=== PATIENT | female | born 1950 | race Caucasian/White ===

== ENCOUNTER → 2017-07-14 | Outpatient (CLI) | payer OTHER ==
[~2017-07-14] MED LIST: ASPI81TA28 PO; ATEN50TA8 PO; CALC500C70 PO; CRAN1CAP15; MULT-506 PO; OMEG1CAP81; PRLSR20 PO; ZCR20
== END | disposition home or self-care (01) ==
LOC: C.PAPS 10:49
PROVIDERS: ATTEND Obstetrics & Gynecology
DX: Z12.4 Encounter for screening for malignant neoplasm of cervix (principal)

== ENCOUNTER 2017-12-20 04:54 | Emergency (ER) | payer OTHER ==
[~2017-12-20] VITALS: Ht 154.9 cm; Wt 96.5 kg
[~2017-12-20 04:54] MED LIST changes: -CALC500C70 PO; -CRAN1CAP15; +CRAN1TAB9 PO; -OMEG1CAP81; +PHEN-876 PO; -ZCR20; +ZCR20 PO
[2017-12-20 04:57] VITALS: TEMP 36.7; Ht 154.9 cm; Wt 96.5 kg
[2017-12-20] MEDS ORDERED: PHENAZOPYRIDINE HCL 200 MG TAB PO STA (05:13)
--- NOTE | 2017-12-20 05:20 | EMERGENCY ROOM VISIT NOTE ---
History Report prepared by Tata: Yesenia Tariq Under the Supervision of: Dr. Eben Thakur M.D. First contact with patient: 05:02 Chief Complaint: URINARY SYMPTOMS Stated Complaint: UTI History of Present Illness The patient is a 67 year old female who presents to the Emergency Room with complaints of persistent frequent urination that started last night. The patient rates her discomfort a 1/10 in severity. The patient reports she was diagnosed with a UTI and was told by her doctor if she started experiencing any issues to go to the ER. She notes she was starting to feel better over the past week and a half but last night started having frequent urination and now has blood in her urine. She states she is not currently on any antibiotics. She notes she had a negative response to Cipro and Gabapentin and Doxycycline was not working. She states Cipro burned her nose and many other medications affect her eyes. The patient denies fever, nausea, vomiting, abdominal pain, leg swelling, or rashes. Source of History: patient Onset: last night Symptom Intensity: 1/10 Timing: other (persistent) Associated Symptoms: + urinary symptoms, No fevers, No nausea, No vomiting, No abdominal pain, No rash Review of Systems See HPI for pertinent positives & negatives. A total of 10 systems reviewed and were otherwise negative. Past Medical & Surgical Medical Problems: (1) Abnormal uterine bleeding (2) Arthritis (3) Bladder disease (4) Bleeding from varicose vein (5) Dysuria (6) Endometrial polyp (7) Gross hematuria (8) Hyperlipemia (9) Hypertension (10) Pelvic pain (11) Postmenopausal bleeding (12) Recurrent UTI (13) Slowing of urinary stream (14) Urge and stress incontinence (15) Urinary frequency (16) Urinary hesitancy (17) Urinary tract infection Social History Smoking Status: Never Smoker Current/Historical Medications Scheduled Aspirin (Aspirin Ec), 81 MG PO HS Atenolol (Tenormin), 50 MG PO QAM Cefdinir (Omnicef), 300 MG PO Q12H Cranberry (Vaccinium Macrocarp (Cranberry), 1 TAB PO TID Simvastatin (Simvastatin), 20 MG PO HS Allergies Coded Allergies: Sulfamethoxazole w/Trimethoprim (Verified Allergy, Intermediate, EYE IRRITATION, 12/20/17) Ciprofloxacin (Verified Allergy, Unknown, "EXCESS FLUID NOTED", 12/20/17) Levofloxacin (Verified Allergy, Unknown, BLURRY VISION, 12/20/17) Penicillins (Verified Allergy, Unknown, HIVES, 12/20/17) Gentamicin (Verified Adverse Reaction, Intermediate, Blurry vision, 12/20/17 ) Physical Exam Vital Signs Date Time Temp Pulse Resp B/P (MAP) Pulse Ox O2 Delivery O2 Flow Rate FiO2 12/20/17 06:20 60 18 160/80 95 12/20/17 04:57 36.7 83 20 183/93 96 Room Air Physical Exam GENERAL: Patient is well appearing and in no acute distress. EYES: No scleral icterus, unremarkable pupils. ENT: Mucous membranes moist, no nasal congestion. NECK: No masses appreciated, no meningismus, trachea is midline. RESPIRATORY: No dyspnea. Clear to auscultation and equal bilaterally. No wheeze , no rhonchi. CARDIOVASCULAR: Regular rate and rhythm. No murmurs, rubs, gallops appreciated. GASTROINTESTINAL: Abdomen soft, nontender, no peritonitis. Bowel sounds positive. No masses appreciated. BACK: No midline tenderness, no CVA tenderness EXTREMITIES: Normal motion all extremities, no cyanosis, no edema. NEUROLOGIC: Alert and oriented, no acute motor or sensory deficits, no focal weakness, cranial nerves grossly intact. SKIN: No rash, no jaundice, no diaphoresis. Medical Decision & Procedures Laboratory Results Test 12/20/17 05:15 Urine Color YELLOW Urine Appearance TURBID (CLEAR) Urine pH 6.5 (4.5-7.5) Urine Specific [place] 1.008 (1.000-1.030) Urine Protein 2+ (NEG) Urine Glucose (UA) NEG (NEG) Urine Ketones NEG (NEG) Urine Occult Blood 3+ (NEG) Urine Nitrite POS (NEG) Urine Bilirubin NEG (NEG) Urine Urobilinogen NEG (NEG) Urine Leukocyte Esterase LARGE (NEG) Urine WBC (Auto) >30 /hpf (0-5) Urine RBC (Auto) >30 /hpf (0-4) Urine Hyaline Casts (Auto) 5-10 /lpf (0-5) Urine Epithelial Cells (Auto) 5-10 /lpf (0-5) Urine Bacteria (Auto) 3+ (NEG) Urine Pathogenic Casts /lpf (0) Laboratory results as reviewed by me. Medications Administered Medications (Trade) Dose Ordered Sig/Messi Route Start Time Stop Time Status Last Admin Dose Admin Phenazopyridine HCl (Pyridium Tab) 200 mg NOW STAT PO 12/20/17 05:13 12/20/17 05:14 DC 12/20/17 05:22 200 MG Cefdinir (Omnicef Cap) 300 mg ONE STAT PO 12/20/17 05:51 12/20/17 05:52 DC 12/20/17 05:58 300 MG ED Course 0505: The patient was evaluated in room C1B. A complete history and physical exam was performed. 0555: I rechecked the patient. She states she is feeling okay. She would like to try outpatient treatment. 0600: Reevaluated the patient. Discussed results and discharge instructions: She verbalized understanding and agreement. The patient is ready for discharge. Medical Decision Differential: UTI, Pyelonephritis, Vaginitis, amongst other pathologies entertained. 67 yr old female with UTI symptoms. This is becoming chronic for her and she has been on vast array of abx with reported allergies to all of them, though other than Bactrim nothing appears to be severe. Admits that Keflex caused her eyes to "Feel Full" but admits no vision changes, no swelling, no redness nor any other symptoms. UA clearly infected. No CVA TTP nor evidence pyelo. Will try Omnicef after long discussing with her regarding possibility of adverse effect. She has ID appointment this Tuesday. Reviewed RTED instructions with patient. Medication Reconcilliation Current Medication List: was personally reviewed by me Blood Pressure Screening Patient's blood pressure: Elevated blood pressure Blood pressure disposition: Referred to PCP Impression Primary Impression: Urinary tract infection Scribe Attestation The scribe's documentation has been prepared under my direction and personally reviewed by me in its entirety. I confirm that the note above accurately reflects all work, treatment, procedures, and medical decision making performed by me. Departure Information Dispostion Home / Self-Care Prescriptions Cefdinir (Omnicef) 300 Mg Cap 300 MG PO Q12H for 7 Days, #14 CAP Prov: Eben Thakur M.D. 12/20/17 Referrals Johnny Luis D.O. (PCP) Patient Instructions My [facility] Additional Instructions Keep well hydrated. Return if fevers, vomiting, passing out, pain or other concerns. Follow up with Infectious Disease as planned. Problem Qualifiers Primary Impression: Urinary tract infection Urinary tract infection type: acute cystitis Hematuria presence: with hematuria Qualified Codes: N30.01 - Acute cystitis with hematuria
[2017-12-20] MEDS ORDERED: PHENAZOPYRIDINE HCL 200 MG TAB PO ONE (05:21)
[2017-12-20] MEDS ORDERED: CEFDINIR 300 MG CAP PO STA (05:51)
[2017-12-20] MEDS ORDERED: CEFD1CAP14 PO ×2 (05:59→06:13)
[2017-12-20 06:20] VITALS: BP 160/80; PULSE 60; O2SAT 95
--- NOTE | 2017-12-22 12:44 | Pharmacy Progress Note ---
ED Pharmacist Culture FollowUp Date of Service: Dec 22, 2017. Patient was sent home with a prescription for cefdinir 300 mg BID x 7 days, which should cover the E. coli growing from the patient's urine culture.
== END 2017-12-20 06:24 | disposition home or self-care (01) ==
LOC: C.EDB 04:54 → C.EDC 06:24
DX: N30.01 Acute cystitis with hematuria (principal); I10 Essential (primary) hypertension; E78.5 Hyperlipidemia, unspecified; Z79.82 Long term (current) use of aspirin; Z87.440 Personal history of urinary (tract) infections; Z88.2 Allergy status to sulfonamides; Z88.1 Allergy status to other antibiotic agents; Z88.0 Allergy status to penicillin

== ENCOUNTER 2018-01-02 17:53 | Inpatient (IN) | payer OTHER ==
[~2018-01-02] VITALS: Ht 154.9 cm; Wt 95.1 kg
[~2018-01-02 17:53] MED LIST changes: +CEFD1CAP14 PO; -MULT-506 PO; -PHEN-876 PO; -PRLSR20 PO
[2018-01-02] MEDS ORDERED: SODIUM CHLORIDE 0.9% 1000ML 1,000 ML IV STA (18:22)
[2018-01-02] MEDS ORDERED: ACETAMINOPHEN 325 MG TAB PO STA (18:22)
--- NOTE | 2018-01-02 18:43 | EMERGENCY ROOM VISIT NOTE ---
History Report prepared by Tata: Humera Martinez Under the Supervision of: Dr. Ramsey Orr M.D. First contact with patient: 18:13 Chief Complaint: URINARY SYMPTOMS Stated Complaint: UTI, SORE THROAT, FEVER, CHILLS History of Present Illness The patient is a 67 year old female who presents to the Emergency Room with complaints of worsening urinary symptoms starting last night. The patient states that she was here earlier in the month for a UTI and given Cefdinir for 7 days. She states that she saw her PCP on the and they told her to continue the antibiotics she was on. She reports that she stopped taking them 6 days ago and last night started having symptoms again. She states that her bladder feels like a "basketball." She reports that she has been experiencing urinary frequency, hematuria, and urinary incontinence. She notes that she took Pyridium last night and another Cefdinir pill this morning with no relief. The patient complains of fever, chills, sore throat, cough, and nausea. The patient denies burning with urination, back pain, chest pain, headache, taking anything for her fever, and a history of Diabetes. The patient notes that she feels like she has been keeping up with her fluids. Source of History: patient, friend Onset: last night Position: abdomen Quality: other (urinary symptoms) Timing: worsening Associated Symptoms: + fevers, + chills, + sorethroat, + cough, + nausea, + abdominal pain ("basketball" in [place]), + urinary symptoms (incontinence, frequency, and hematuria), No headache, No chest pain, No back pain Note: The patient denies burning with urination. Review of Systems See HPI for pertinent positives & negatives. A total of 10 systems reviewed and were otherwise negative. Past Medical & Surgical Medical Problems: (1) Abnormal uterine bleeding (2) Arthritis (3) Bladder disease (4) Bleeding from varicose vein (5) Dysuria (6) Endometrial polyp (7) Failure of outpatient treatment (8) Failure of outpatient treatment (9) Gross hematuria (10) Hx of hiatal hernia (11) Hyperlipemia (12) Hypertension (13) Pelvic pain (14) Postmenopausal bleeding (15) Recurrent UTI (16) Slowing of urinary stream (17) Urge and stress incontinence (18) Urinary frequency (19) Urinary hesitancy (20) Urinary tract infection (21) Urinary tract infection Old medical records were reviewed. Nurse's notes were reviewed and I agree with. Family History Diabetes mellitus FH: heart disease Hypertension Social History Smoking Status: Never Smoker Smokeless Tobacco Use: No Alcohol Use: none Housing Status: lives alone Occupation Status: employed Current/Historical Medications Scheduled Aspirin (Aspirin Ec), 81 MG PO HS Atenolol (Tenormin), 50 MG PO QAM Cefdinir (Omnicef), 300 MG PO Q12H Cranberry (Vaccinium Macrocarp (Cranberry), 300 MG PO TID Omeprazole (Prilosec), 20 MG PO DAILY Simvastatin (Simvastatin), 20 MG PO HS Scheduled PRN Phenazopyridine HCl (Pyridium), 200 MG PO TID PRN for Pain Allergies Coded Allergies: Sulfamethoxazole w/Trimethoprim (Verified Allergy, Intermediate, EYE IRRITATION, 12/20/17) Ciprofloxacin (Verified Allergy, Unknown, "EXCESS FLUID NOTED", 12/20/17) Levofloxacin (Verified Allergy, Unknown, BLURRY VISION, 12/20/17) Penicillins (Verified Allergy, Unknown, HIVES, 12/20/17) Gentamicin (Verified Adverse Reaction, Intermediate, Blurry vision, 12/20/17 ) Physical Exam Vital Signs Date Time Temp Pulse Resp B/P (MAP) Pulse Ox O2 Delivery O2 Flow Rate FiO2 01/02/18 20:45 85 20 140/69 92 Room Air 01/02/18 19:02 97 Room Air 01/02/18 18:06 39.4 83 18 170/85 98 Room Air Physical Exam General: Non-ill appearing older female in no acute distress. HEENT: Normal cephalic atraumatic. Pupils are equal round and reactive to light. Extraocular movements are intact. Oropharynx is pink with moist mucous membranes. No swelling of the mouth lips or tongue. Neck: Supple with a midline trachea. No meningeal signs or stiffness, no JVD or bruits. No Stridor. Chest: Clear to auscultation bilaterally. No wheezes or rhonchi. No increased work of breathing. Heart: regular rate and rhythm. Abdomen: Soft nontender, nondistended without rebound guarding or rigidity. Extremities: No cyanosis clubbing or edema. No calf tenderness or assymetry Spine/Back. Non tender to palpation. No CVA tenderness Skin: Good turgor without rashes. Neurologic exam: Cranial nerves two through 12 are intact. Motor and sensation are intact and symmetrical throughout. Medical Decision & Procedures ER Provider Diagnostic Interpretation: Radiology results as stated below per my review and radiologist interpretation: CHEST ONE VIEW PORTABLE CLINICAL HISTORY: Sepsis. COMPARISON STUDY: Chest radiograph January 17, 2014. FINDINGS: Patient is rotated. There is no pneumothorax or pleural effusion. Moderate cardiomegaly is noted. There is no evidence for pulmonary edema. There is suspected right lower lung airspace opacity. IMPRESSION: 1. Suspected right lower lung opacity which favors a focus of pneumonia. Radiographic follow up to ensure resolution is recommended. 2. Moderate cardiomegaly without evidence for pulmonary edema. Electronically signed by: Liam Tolliver M.D. 01/02/2018 6:41 PM Dictated Date/Time: 01/02/2018 6:38 PM Laboratory Results 01/02/18 18:30 Red Blood Count 5.11, Mean Corpuscular Volume 82.0, Mean Corpuscular Hemoglobin 27.8, Mean Corpuscular Hemoglobin Concent 33.9, Mean Platelet Volume 9.7, Neutrophils (%) (Auto) 92.9, Lymphocytes (%) (Auto) 3.1, Monocytes (%) (Auto) 2.6, Eosinophils (%) (Auto) 0.9, Basophils (%) (Auto) 0.1, Neutrophils # (Auto) 10.54, Lymphocytes # (Auto) 0.35, Monocytes # (Auto) 0.29, Eosinophils # (Auto) 0.10, Basophils # (Auto) 0.01 01/02/18 18:30 Test 01/02/18 18:15 01/02/18 18:30 01/02/18 19:15 Urine Color DK YELLOW Urine Appearance TURBID (CLEAR) Urine pH 6.0 (4.5-7.5) Urine Specific [place] 1.009 (1.000-1.030) Urine Protein 1+ (NEG) Urine Glucose (UA) NEG (NEG) Urine Ketones NEG (NEG) Urine Occult Blood 2+ (NEG) Urine Nitrite POS (NEG) Urine Bilirubin NEG (NEG) Urine Urobilinogen NEG (NEG) Urine Leukocyte Esterase LARGE (NEG) Urine WBC (Auto) >30 /hpf (0-5) Urine RBC (Auto) 10-30 /hpf (0-4) Urine Hyaline Casts (Auto) 1-5 /lpf (0-5) Urine Epithelial Cells (Auto) 10-20 /lpf (0-5) Urine Bacteria (Auto) NEG (NEG) Urine Pathogenic Casts /lpf (0) Urine Yeast (Auto) BUDDING (NONE PRSENT) Urine Sperm (Auto) White Blood Count 11.33 K/uL (4.8-10.8) Red Blood Count 5.11 M/uL (4.2-5.4) Hemoglobin 14.2 g/dL (12.0-16.0) Hematocrit 41.9 % (37-47) Mean Corpuscular Volume 82.0 fL (80-100) Mean Corpuscular Hemoglobin 27.8 pg (25-34) Mean Corpuscular Hemoglobin Concent 33.9 g/dl (32-36) Platelet Count 100 K/uL (130-400) Mean Platelet Volume 9.7 fL (7.4-10.4) Neutrophils (%) (Auto) 92.9 % Lymphocytes (%) (Auto) 3.1 % Monocytes (%) (Auto) 2.6 % Eosinophils (%) (Auto) 0.9 % Basophils (%) (Auto) 0.1 % Neutrophils # (Auto) 10.54 K/uL (1.4-6.5) Lymphocytes # (Auto) 0.35 K/uL (1.2-3.4) Monocytes # (Auto) 0.29 K/uL (0.11-0.59) Eosinophils # (Auto) 0.10 K/uL (0-0.5) Basophils # (Auto) 0.01 K/uL (0-0.2) RDW Standard Deviation 42.3 fL (36.4-46.3) RDW Coefficient of Variation 14.2 % (11.5-14.5) Immature Granulocyte % (Auto) 0.4 % Immature Granulocyte # (Auto) 0.04 K/uL (0.00-0.02) Prothrombin Time 10.2 SECONDS (9.0-12.0) Prothromb Time International Ratio 1.0 (0.9-1.1) Activated Partial Thromboplast Time 23.3 SECONDS (21.0-31.0) Partial Thromboplastin Ratio 0.9 Anion Gap 9.0 mmol/L (3-11) Est Creatinine Clear Calc Drug Dose 63.9 ml/min Estimated GFR () 76.7 Estimated GFR (Non- 66.2 BUN/Creatinine Ratio 13.5 (10-20) Calcium Level 9.0 mg/dl (8.5-10.1) Total Bilirubin 0.7 mg/dl (0.2-1) Aspartate Amino Transf (AST/SGOT) 20 U/L (15-37) Alanine Aminotransferase (ALT/SGPT) 26 U/L (12-78) Alkaline Phosphatase 85 U/L (45-117) Total Protein 7.4 gm/dl (6.4-8.2) Albumin 3.6 gm/dl (3.4-5.0) Globulin 3.8 gm/dl (2.5-4.0) Albumin/Globulin Ratio 0.9 (0.9-2) Bedside Lactic Acid Venous 0.64 mmol/L (0.90-1.70) Laboratory studies as stated above per my review. Medications Administered Medications (Trade) Dose Ordered Sig/Messi Route Start Time Stop Time Status Last Admin Dose Admin Sodium Chloride 1,000 ml @ 999 mls/hr Q1H1M STAT IV 01/02/18 18:22 01/02/18 19:22 DC 01/02/18 18:48 999 MLS/HR Acetaminophen (Tylenol Tab) 650 mg NOW STAT PO 01/02/18 18:22 01/02/18 18:26 DC 01/02/18 18:48 650 MG Ertapenem 1 gm/ Sodium Chloride 50 ml @ 100 mls/hr ONE ONCE IV 01/02/18 19:00 01/02/18 19:29 DC 01/02/18 19:17 100 MLS/HR ED Course 1814: Past medical records reviewed. The patient was evaluated in room C10, and a complete history and physical examination were performed. 1821: Ordered Acetaminophen 650 mg PO, NSS 1000 ml @ 999 mls/hr IV. 1825: I discussed the patient's case with the pharmacist at this time. 1899: Ordered Ertapenem 1 gm/Sodium Chloride 50 ml @ 100 mls/hr IV. 1936: I reevaluated the patient and updated her on her test results. She verbally agrees and understands the treatment plan. 1950: Discussed the patient's case with Dr. Rad[place] Hospitalist Resident. The patient will be evaluated for further management. Medical Decision Differential diagnoses include sepsis, UTI, pyelonephritis, electrolyte or metabolic abnormality. This patient comes in as described above. She was placed in room C10. She has a high fever. She has a history of recurrent UTIs. she was recently treated with a cephalosporin and has been off for about 5 days after prolonged course. she started having symptoms again last night. Clinically, she looks well and she is normotensive. she was given Tylenol for her fever as well as IV hydration. Blood work was obtained including blood cultures as well as urinalysis and culture. I have reviewed her old cultures and discussed with her ED pharmacist working a starter ertapenem IV. Her white count is mildly elevated but her lactic acid is not she has been normotensive. She was given IV fluids. Her chest x-ray shows a possible infiltrate in the base as well. Ertapenem should have coverage for this as well although she may need further antibiotic coverage. I do think she needs to be admitted for further inpatient treatment and evaluation. Medication Reconcilliation Current Medication List: was personally reviewed by me Blood Pressure Screening Patient's blood pressure: Normal blood pressure Blood pressure disposition: Did not require urgent referral Consults Time Called: 1931 Consulting Physician: Dr. Dunlap Hospitalist Resident Returned Call: 1950 Discussed the patient's case with Dr. Dunlap Hospitalist Resident. The patient will be evaluated for further management. Impression Primary Impression: Sepsis Additional Impressions: UTI (urinary tract infection) Pneumonia Scribe Attestation The scribe's documentation has been prepared under my direction and personally reviewed by me in its entirety. I confirm that the note above accurately reflects all work, treatment, procedures, and medical decision making performed by me. Departure Information Dispostion Being Evaluated By Hospitalist Referrals Jhonny Luis D.O. (PCP) Patient Instructions My [facility] Problem Qualifiers
[2018-01-02] MEDS ORDERED: ERTAPENEM IV 1 GM in SODIUM CHLOR 0.9% AD-VAN 50ML IV ONE (19:00)
[2018-01-02 19:18] LABS: BASO % 0.1 %; BASO ABS # 0.01 K/uL (0-0.2); EOS % 0.9 %; HEMATOCRIT 41.9 % (37-47); HEMOGLOBIN 14.2 g/dL (12.0-16.0); IG# 0.04 K/uL (0.00-0.02); LYMPH % 3.1 %; LYMPH ABS # 0.35 K/uL (1.2-3.4); MEAN CORPUSCULAR HEMOGLOBIN 27.8 pg (25-34); MEAN CORPUSCULAR HGB CONC 33.9 g/dl (32-36); MEAN PLATELET VOLUME 9.7 fL (7.4-10.4); MONO % 2.6 %; MONO ABS # 0.29 K/uL (0.11-0.59); NEUT % 92.9 %; NEUT ABS # 10.54 K/uL (1.4-6.5); PLATELET COUNT 100 K/uL (130-400); RED CELL DISTRIBUTION WIDTH CV 14.2 % (11.5-14.5); RED CELL DISTRIBUTION WIDTH SD 42.3 fL (36.4-46.3); WHITE BLOOD COUNT 11.33 K/uL (4.8-10.8)
[2018-01-02 19:26] LABS: PTT PATIENT 23.3 SECONDS (21.0-31.0)
[2018-01-02 19:27] LABS: ALBUMIN 3.6 gm/dl (3.4-5.0); CREATININE 0.9 mg/dl (0.60-1.20); TOTAL PROTEIN 7.4 gm/dl (6.4-8.2)
[2018-01-02] MEDS ORDERED: PRLSR20 PO (20:10)
[2018-01-02] MEDS ORDERED: PHEN-876 PO (20:11)
[2018-01-02] MEDS ORDERED: CEFD1CAP14 PO (20:12)
[2018-01-02] MEDS ORDERED: ACETAMINOPHEN 325 MG TAB PO PRN (20:15)
[2018-01-02] MEDS ORDERED: MAGNESIUM HYDROXIDE SUSP 30 ML UDC PO PRN (20:15)
[2018-01-02] MEDS ORDERED: ONDANSETRON INJ 2 MG/ML 2 ML VIAL IV PRN (20:15)
[2018-01-02] MEDS ORDERED: VANCOMYCIN CONSULT ACTIVE PRN (20:30)
--- NOTE | 2018-01-02 20:38 | History and Physical ---
History & Physical Date & Time of Service: Jan 02, 2018 at 20:14 Chief Complaint: Uti, Sore Throat, Fever, Chills Primary Care Physician: Johnny Luis D.O. History of Present Illness Source: patient, family, hospital records Patient is a 67 year old female with a 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 that presents with fever and urinary symptoms. The patient completed a 7 day course of Omnicef on the ( 6 days ago) after initially complaining of suprapubic pressure and incontinence. The patient had followed with Dr. Cui of [place] due to her complicated antibiotic history and was continued on her course of Omnicef. The patient started to have symptoms once again early this morning at 2 am including suprapubic pressure, incontinence, and polyuria and decided to take a dose of Pyridium. She went to work today but began to have significant chills in the afternoon. She also states she has been having a cough for 1 day along with a sore throat but denies any shortness of breath, sputum production, wheezing, or any other respiratory symptoms. Past Medical/Surgical History Medical Problems: (1) Abnormal uterine bleeding (2) Arthritis (3) Bladder disease (4) Bleeding from varicose vein (5) Dysuria (6) Endometrial polyp (7) Failure of outpatient treatment (8) Gross hematuria (9) Hx of hiatal hernia (10) Hyperlipemia (11) Hypertension (12) Pelvic pain (13) Postmenopausal bleeding (14) Recurrent UTI (15) Slowing of urinary stream (16) Urge and stress incontinence (17) Urinary frequency (18) Urinary hesitancy (19) Urinary tract infection Family History Diabetes mellitus FH: heart disease Hypertension Social History Smoking Status: Never Smoker Smokeless Tobacco Use: No Alcohol Use: none Drug Use: none Occupational Status: employed Immunizations History of Influenza Vaccine: Unknown History of Tetanus Vaccine?: Unknown History of Pneumococcal: Unknown History of Hepatitis B Vaccine: Unknown Allergies Coded Allergies: Sulfamethoxazole w/Trimethoprim (Verified Allergy, Intermediate, EYE IRRITATION, 12/20/17) Ciprofloxacin (Verified Allergy, Unknown, "EXCESS FLUID NOTED", 12/20/17) Levofloxacin (Verified Allergy, Unknown, BLURRY VISION, 12/20/17) Penicillins (Verified Allergy, Unknown, HIVES, 12/20/17) Gentamicin (Verified Adverse Reaction, Intermediate, Blurry vision, 12/20/17 ) Home Medications Scheduled Aspirin (Aspirin Ec), 81 MG PO HS Atenolol (Tenormin), 50 MG PO QAM Cefdinir (Omnicef), 300 MG PO Q12H Cranberry (Vaccinium Macrocarp (Cranberry), 300 MG PO TID Omeprazole (Prilosec), 20 MG PO DAILY Simvastatin (Simvastatin), 20 MG PO HS Scheduled PRN Phenazopyridine HCl (Pyridium), 200 MG PO TID PRN for Pain Review of Systems Constitutional: + fever, + chills, + fatigue, No sweats, No weight loss ENT: + sore throat Respiratory: + cough, No sputum, No wheezing, No shortness of breath, No dyspnea on exertion Cardiovascular: No chest pain, No palpitations Abdomen: No pain, No nausea, No vomiting, No diarrhea Musculoskeletal: No joint pain, No calf pain Genitourinary - Female: + urinary frequency, + urinary urgency, No dysuria, No hematuria Endocrine: No fatigue Physical Exam Vital Signs Date Time Temp Pulse Resp B/P (MAP) Pulse Ox O2 Delivery O2 Flow Rate FiO2 01/02/18 19:02 97 Room Air 01/02/18 18:06 39.4 83 18 170/85 98 Room Air General Appearance: WD/WN, no apparent distress, + mild distress Head: normocephalic, atraumatic Eyes: normal inspection, sclerae normal Neck: supple, no carotid bruits Respiratory/Chest: chest non-tender, lungs clear, normal breath sounds, no respiratory distress, no accessory muscle use Cardiovascular: regular rate, rhythm, no edema, no gallop, no murmur Abdomen/GI: normal bowel sounds, non tender, soft Back: normal inspection, no CVA tenderness Extremities/Musculoskelatal: no calf tenderness, no pedal edema, + pertinent finding (Right lower extremity flushing\\) Neurologic/Psych: alert, normal mood/affect, oriented x 3 Diagnostics Laboratory Results Results Past 24 Hours Test 01/02/18 18:15 01/02/18 18:30 01/02/18 18:50 01/02/18 19:15 Range/Units Urine Color DK YELLOW Urine Appearance TURBID CLEAR Urine pH 6.0 4.5-7.5 Urine Specific [place] 1.009 1.000-1.030 Urine Protein 1+ NEG Urine Glucose (UA) NEG NEG Urine Ketones NEG NEG Urine Occult Blood 2+ NEG Urine Nitrite POS NEG Urine Bilirubin NEG NEG Urine Urobilinogen NEG NEG Urine Leukocyte Esterase LARGE NEG Urine WBC (Auto) >30 0-5 /hpf Urine RBC (Auto) 10-30 0-4 /hpf Urine Hyaline Casts (Auto) 1-5 0-5 /lpf Urine Epithelial Cells (Auto) 10-20 0-5 /lpf Urine Bacteria (Auto) NEG NEG Urine Pathogenic Casts 0 /lpf Urine Yeast (Auto) BUDDING NONE PRSENT Urine Sperm (Auto) White Blood Count 11.33 4.8-10.8 K/uL Red Blood Count 5.11 4.2-5.4 M/uL Hemoglobin 14.2 12.0-16.0 g/dL Hematocrit 41.9 37-47 % Mean Corpuscular Volume 82.0 80-100 fL Mean Corpuscular Hemoglobin 27.8 25-34 pg Mean Corpuscular Hemoglobin Concent 33.9 32-36 g/dl Platelet Count 100 130-400 K/uL Mean Platelet Volume 9.7 7.4-10.4 fL Neutrophils (%) (Auto) 92.9 % Lymphocytes (%) (Auto) 3.1 % Monocytes (%) (Auto) 2.6 % Eosinophils (%) (Auto) 0.9 % Basophils (%) (Auto) 0.1 % Neutrophils # (Auto) 10.54 1.4-6.5 K/uL Lymphocytes # (Auto) 0.35 1.2-3.4 K/uL Monocytes # (Auto) 0.29 0.11-0.59 K/uL Eosinophils # (Auto) 0.10 0-0.5 K/uL Basophils # (Auto) 0.01 0-0.2 K/uL RDW Standard Deviation 42.3 36.4-46.3 fL RDW Coefficient of Variation 14.2 11.5-14.5 % Immature Granulocyte % (Auto) 0.4 % Immature Granulocyte # (Auto) 0.04 0.00-0.02 K/uL Prothrombin Time 10.2 9.0-12.0 SECONDS Prothromb Time International Ratio 1.0 0.9-1.1 Activated Partial Thromboplast Time 23.3 21.0-31.0 SECONDS Partial Thromboplastin Ratio 0.9 Sodium Level 139 136-145 mmol/L Potassium Level 4.0 3.5-5.1 mmol/L Chloride Level 104 98-107 mmol/L Carbon Dioxide Level 26 21-32 mmol/L Anion Gap 9.0 3-11 mmol/L Blood Urea Nitrogen 12 7-18 mg/dl Creatinine 0.90 0.60-1.20 mg/dl Est Creatinine Clear Calc Drug Dose 63.9 ml/min Estimated GFR () 76.7 Estimated GFR (Non- 66.2 BUN/Creatinine Ratio 13.5 10-20 Random Glucose 103 70-99 mg/dl Calcium Level 9.0 8.5-10.1 mg/dl Total Bilirubin 0.7 0.2-1 mg/dl Aspartate Amino Transf (AST/SGOT) 20 15-37 U/L Alanine Aminotransferase (ALT/SGPT) 26 12-78 U/L Alkaline Phosphatase 85 45-117 U/L Total Protein 7.4 6.4-8.2 gm/dl Albumin 3.6 3.4-5.0 gm/dl Globulin 3.8 2.5-4.0 gm/dl Albumin/Globulin Ratio 0.9 0.9-2 Bedside Lactic Acid Venous 0.89 0.64 0.90-1.70 mmol/L Microbiology Results 01/02/18 Blood Culture, Received Pending 01/02/18 Blood Culture, Received Pending 01/02/18 Urine Culture, Received Pending Impression Assessment and Plan Patient is a 67 year old female with a 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 that presents with fever and urinary symptoms UTI Failing Outpatient Therapy - UA: 2+ Occult Blood, Positive Nitrite, Large Leuk Est, > 30 WBC - Urine Culture - Blood Culture - WBC 11.33 - Temperature of 39.4 - Ertapenem 1g qDaily HCAP - Chest X-Ray: 1. Suspected right lower lung opacity which favors a focus of pneumonia. Radiographic follow up to ensure resolution is recommended. 2. Moderate cardiomegaly without evidence for pulmonary edema. - Repeat PA/Lateral CXR for better view - Vancomycin for resistant gram positive coverage in addition to Eratapenem - Blood Culture - Currently doing well on room air with no complaints of shortness of breath Hypertension - Continue home Atenolol - PRN Hydralazine DVT - SCDs Code Status - Full Resuscitation Attending addendum: I have physically seen this patient, have supervised the medical residents activities, and agree with the H&P unless as otherwise noted. Assessment and Plan: Infectious disease/recurrent UTI with failure of outpatient therapy/right lower lobe and multifocal pneumonia-- Place on vancomycin IV and ertapenem IV. Follow urine culture and sensitivity. Follow sputum Gram stain and culture and sensitivity. Follow blood cultures. Duonebs every 4 hours while awake and every 2 hours when necessary. Hypertension-- Continue atenolol with hold parameters. Remainder of orders and notations as above. Advanced Directives Existing Advance Directive: No Existing Living Will: No Existing Power of Shirt Cleaner: No Resuscitation Status Full code VTE Prophylaxis Will order VTE Prophylaxis: Yes Social Service Consult None Apply Resident Tracking Resident Involvement: Resident Care Provided Care Provided: Adult Hospital Medicine
[2018-01-02] MEDS ORDERED: IV FLUIDS COMPLETED PRN (20:45)
[2018-01-02] MEDS ORDERED: HydrALAZINE HCL 20 MG/ML VIAL IV. PRN (20:45)
[2018-01-02] MEDS ORDERED: SIMVASTATIN 20 MG TAB PO SCH (21:00)
[2018-01-02] MEDS ORDERED: VANCOMYCIN IV 2,500 MG in SODIUM CHLORIDE 0.9% 500ML 500 ML IV STA (21:10)
[2018-01-02 21:45] VITALS: BP 113/64; PULSE 93; TEMP 37.8; O2SAT 94
[2018-01-02 22:12] VITALS: BP 113/64; PULSE 93; TEMP 37.8; O2SAT 95; Ht 154.9 cm; Wt 95.1 kg
--- NOTE | 2018-01-02 22:20 | DIAGNOSTIC IMAGING REPORT ---
CHEST 2 VIEWS ROUTINE CLINICAL HISTORY: Pneumonia poorly viewed on portable. COMPARISON STUDY: Chest radiograph January 17, 2014 and January 02, 2018 at 6:25 PM. FINDINGS: No pneumothorax or pleural effusion is noted. Mild cardiomegaly is noted. There are mild bibasilar opacities. There is no evidence for pulmonary edema. The right lower lung opacity shown on portable chest radiograph is less conspicuous on this exam. IMPRESSION: Mild bibasilar opacities. Apparent right lower lung opacity on portable chest radiograph less conspicuous on this exam. Findings on this exam favor atelectasis although a mild infectious process could appear similar. Electronically signed by: Liam Tolliver M.D. 01/02/2018 10:19 PM Dictated Date/Time: 01/02/2018 10:17 PM
[2018-01-02] MEDS: ASPIRIN 81 MG ECTAB PO SCH (22:39)
--- NOTE | 2018-01-02 22:48 | Pharmacy Progress Note ---
Pharmacy Abx Initial Consult Date of Service Jan 02, 2018. Pharmacy Dosing Scope Date of Consult: 01/02/18 Consultation requested by: Dr. Radford Pharmacy is consulted to initiate vancomycin IV dosing therapy, order appropriate labs and adjust drug dose/frequency. Subjective The patient is a 67 year old female admitted on Jan 02, 2018 at 20:50. Objective Height (Feet): 5 Height (Inches): 1.00 Weight (Kilograms): 95.300 Vital Signs (Past 12Hrs) Vital Signs Past 12 Hours Date Time Temp Pulse Resp B/P (MAP) Pulse Ox O2 Delivery O2 Flow Rate FiO2 01/02/18 22:12 37.8 93 22 113/64 95 Room Air 01/02/18 21:45 37.8 93 22 113/64 (80) 94 Room Air 01/02/18 20:59 Nasal Cannula 2.0 01/02/18 20:45 85 20 140/69 92 Room Air 01/02/18 19:02 97 Room Air 01/02/18 18:06 39.4 83 18 170/85 98 Room Air Lab Results (24Hrs) Laboratory Tests (24 Hours) Test 01/02/18 18:30 White Blood Count 11.33 K/uL (4.8-10.8) H Red Blood Count 5.11 M/uL (4.2-5.4) Hemoglobin 14.2 g/dL (12.0-16.0) Hematocrit 41.9 % (37-47) Mean Corpuscular Volume 82.0 fL (80-100) Mean Corpuscular Hemoglobin 27.8 pg (25-34) Mean Corpuscular Hemoglobin Concent 33.9 g/dl (32-36) Platelet Count 100 K/uL (130-400) L Mean Platelet Volume 9.7 fL (7.4-10.4) Neutrophils (%) (Auto) 92.9 % Lymphocytes (%) (Auto) 3.1 % Monocytes (%) (Auto) 2.6 % Eosinophils (%) (Auto) 0.9 % Basophils (%) (Auto) 0.1 % Neutrophils # (Auto) 10.54 K/uL (1.4-6.5) H Lymphocytes # (Auto) 0.35 K/uL (1.2-3.4) L Monocytes # (Auto) 0.29 K/uL (0.11-0.59) Eosinophils # (Auto) 0.10 K/uL (0-0.5) Basophils # (Auto) 0.01 K/uL (0-0.2) Micro Results Date/Time Source Procedure Growth Status 01/02/18 19:05 Blood Blood Culture Pending Received 01/02/18 18:50 Blood Blood Culture Pending Received 01/02/18 21:45 Nasal MRSA DNA Surveillance Screen Pending Received 01/02/18 18:15 Urine , Clean Catch Urine Culture Pending Received Risk Factors for Resistance * Antimicrobial use within the last 90 days (Omnicef) Assessment & Plan Assessment 67 year old female with fevers is admitted with possible UTI and pneumonia Plan vancomycin for treatment of pulmonary infection Vancomycin IV * Loading dose: 2500 mg (26 mg/kg) * Maintenance dose: 1250 mg IV (13.1 mg/kg) every 12 hours * Goal trough level for pulmonary infections : 15 to 20 mcg/mL * Trough level ordered for 01/04/18 * A less than traditional dose has been selected due to likelihood of drug accumulation in obese patient. Pharmacy will continue to follow and will adjust dose/frequency as necessary. Thank you.
[2018-01-02 22:56] VITALS: BP 100/58; PULSE 83; TEMP 37.2; O2SAT 94
[2018-01-02 23:01] VITALS: TEMP 37.1
[2018-01-03 03:40] VITALS: BP 122/67; PULSE 82; TEMP 37; O2SAT 96
[2018-01-03 06:47] LABS: CREATININE 0.65 mg/dl (0.60-1.20)
[2018-01-03 07:49] VITALS: BP 107/61; PULSE 74; TEMP 36.9; O2SAT 95
[2018-01-03] MEDS ORDERED: VANCOMYCIN IV 1,250 MG in SODIUM CHLORIDE 0.9% 250ML 250 ML IV SCH (09:00)
[2018-01-03 11:24] VITALS: BP 104/58; PULSE 66; TEMP 36.8; O2SAT 94
[2018-01-03] MEDS ORDERED: FLUCONAZOLE / NSS 100 MG in PREMIXED NSS 50 ML IV SCH (12:00)
--- NOTE | 2018-01-03 13:09 | Medical Consult ---
Consultation Date of Consultation: Jan 03, 2018. Attending Physician: Vern Julian D.O. History of Present Illness pt admitted with recurrent uti. was recently seen in the ID office and place on omnicef due to E. coli uti (12/20 culture), resistant to bactrim only. pt has many abx allergies. completed course and felt well but then had recurrent symptoms. 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 She is no afebrile. started on ertapnem and fluconazole. tolerating well. urine culture with pinpoint growth, blood cultures pending. now afebrile and tolerating abx. eating lunch on my exam. afebrile no chills. mild bladder pressure but much improved. no n/v/d abd pain, no n/v/d. no bleeding or dysuria. UA in ER with blood, >30 wbc and yeast, no bacteria noted. she was also started on vanco over concern on pna on cxr. repeat with atelectasis, no sob, cough, sob, wheeze. all remaining ros reviewed and are negative. Past Medical/Surgical History Medical Problems: (1) Pneumonia Status: Acute (2) Sepsis Status: Acute (3) UTI (urinary tract infection) Status: Acute Family History Diabetes mellitus FH: heart disease Hypertension Social History Smoking Status: Never Smoker Smokeless Tobacco Use: No Alcohol Use: none Drug Use: none Housing Status: lives alone Occupation Status: employed Allergies Coded Allergies: Sulfamethoxazole w/Trimethoprim (Verified Allergy, Intermediate, EYE IRRITATION, 12/20/17) Ciprofloxacin (Verified Allergy, Unknown, "EXCESS FLUID NOTED", 12/20/17) Levofloxacin (Verified Allergy, Unknown, BLURRY VISION, 12/20/17) Penicillins (Verified Allergy, Unknown, HIVES, 12/20/17) Gentamicin (Verified Adverse Reaction, Intermediate, Blurry vision, 12/20/17 ) Current Inpatient Medications Current Inpatient Medications Medications (Trade) Dose Ordered Sig/Messi Route Start Time Stop Time Status Last Admin Dose Admin Acetaminophen (Tylenol Tab) 650 mg Q4H PRN PO 01/02/18 20:15 02/01/18 20:14 Magnesium Hydroxide (Milk Of Magnesia Susp) 30 ml Q6H PRN PO 01/02/18 20:15 02/01/18 20:14 Ondansetron HCl (Zofran Inj) 4 mg Q6H PRN IV 01/02/18 20:15 02/01/18 20:14 Aspirin (Ecotrin Tab) 81 mg HS PO 01/02/18 21:00 02/01/18 20:59 01/02/18 22:39 81 MG Atenolol (Tenormin Tab) 50 mg QAM PO 01/03/18 09:00 02/02/18 08:59 01/03/18 08:03 50 MG Ertapenem 1000 mg/ Sodium Chloride 60 ml @ 120 mls/hr Q24H IV 01/03/18 19:00 01/08/18 18:59 Vancomycin HCl (Consult) 1 ea UD PRN N/A 01/02/18 20:30 02/01/18 20:29 Miscellaneous (Iv Fluids Completed) 1 ea PRN PRN N/A 01/02/18 20:45 01/02/19 20:44 Hydralazine HCl (HydrALAZINE INJ) 10 mg Q4H PRN IV. 01/02/18 20:45 02/01/18 20:44 Vancomycin HCl 1250 mg/Sodium Chloride 275 ml @ 125 mls/hr Q12H IV 01/03/18 09:00 01/09/18 23:59 01/03/18 08:03 125 MLS/HR Fluconazole/ Sodium Chloride 100 mg/Prmx 50 ml @ 100 mls/hr Q24H IV 01/03/18 12:00 01/13/18 11:59 01/03/18 11:49 100 MLS/HR Physical Exam Date Time Temp Pulse Resp B/P (MAP) Pulse Ox O2 Delivery O2 Flow Rate FiO2 01/03/18 11:24 36.8 66 20 104/58 (73) 94 01/03/18 07:49 36.9 74 20 107/61 (76) 95 01/03/18 07:30 Room Air 01/03/18 03:40 37.0 82 16 122/67 (85) 96 Room Air 01/03/18 00:00 Room Air 01/02/18 23:01 37.1 01/02/18 22:56 37.2 83 22 100/58 (72) 94 Room Air 01/02/18 22:12 37.8 93 22 113/64 95 Room Air 01/02/18 21:45 37.8 93 22 113/64 (80) 94 Room Air 01/02/18 20:59 Nasal Cannula 2.0 01/02/18 20:45 85 20 140/69 92 Room Air 01/02/18 19:02 97 Room Air 01/02/18 18:06 39.4 83 18 170/85 98 Room Air General Appearance: WD/WN, no apparent distress Head: normocephalic, atraumatic Eyes: normal inspection, EOMI Neck: supple Respiratory/Chest: lungs clear, normal breath sounds, no respiratory distress Cardiovascular: regular rate, rhythm, no edema Abdomen/GI: non tender, soft Extremities/Musculoskelatal: no pedal edema Neurologic/Psych: alert, oriented x 3 Skin: normal color, no rash Laboratory Results Last 24 Hours Test 01/02/18 18:15 01/02/18 18:30 01/02/18 18:50 01/02/18 19:15 Urine Color DK YELLOW Urine Appearance TURBID Urine pH 6.0 Urine Specific [place] 1.009 Urine Protein 1+ Urine Glucose (UA) NEG Urine Ketones NEG Urine Occult Blood 2+ Urine Nitrite POS Urine Bilirubin NEG Urine Urobilinogen NEG Urine Leukocyte Esterase LARGE Urine WBC (Auto) >30 /hpf Urine RBC (Auto) 10-30 /hpf Urine Hyaline Casts (Auto) 1-5 /lpf Urine Epithelial Cells (Auto) 10-20 /lpf Urine Bacteria (Auto) NEG Urine Pathogenic Casts /lpf Urine Yeast (Auto) BUDDING Urine Sperm (Auto) White Blood Count 11.33 K/uL Red Blood Count 5.11 M/uL Hemoglobin 14.2 g/dL Hematocrit 41.9 % Mean Corpuscular Volume 82.0 fL Mean Corpuscular Hemoglobin 27.8 pg Mean Corpuscular Hemoglobin Concent 33.9 g/dl Platelet Count 100 K/uL Mean Platelet Volume 9.7 fL Neutrophils (%) (Auto) 92.9 % Lymphocytes (%) (Auto) 3.1 % Monocytes (%) (Auto) 2.6 % Eosinophils (%) (Auto) 0.9 % Basophils (%) (Auto) 0.1 % Neutrophils # (Auto) 10.54 K/uL Lymphocytes # (Auto) 0.35 K/uL Monocytes # (Auto) 0.29 K/uL Eosinophils # (Auto) 0.10 K/uL Basophils # (Auto) 0.01 K/uL RDW Standard Deviation 42.3 fL RDW Coefficient of Variation 14.2 % Immature Granulocyte % (Auto) 0.4 % Immature Granulocyte # (Auto) 0.04 K/uL Prothrombin Time 10.2 SECONDS Prothromb Time International Ratio 1.0 Activated Partial Thromboplast Time 23.3 SECONDS Partial Thromboplastin Ratio 0.9 Sodium Level 139 mmol/L Potassium Level 4.0 mmol/L Chloride Level 104 mmol/L Carbon Dioxide Level 26 mmol/L Anion Gap 9.0 mmol/L Blood Urea Nitrogen 12 mg/dl Creatinine 0.90 mg/dl Est Creatinine Clear Calc Drug Dose 63.9 ml/min Estimated GFR () 76.7 Estimated GFR (Non- 66.2 BUN/Creatinine Ratio 13.5 Random Glucose 103 mg/dl Calcium Level 9.0 mg/dl Total Bilirubin 0.7 mg/dl Aspartate Amino Transf (AST/SGOT) 20 U/L Alanine Aminotransferase (ALT/SGPT) 26 U/L Alkaline Phosphatase 85 U/L Total Protein 7.4 gm/dl Albumin 3.6 gm/dl Globulin 3.8 gm/dl Albumin/Globulin Ratio 0.9 Bedside Lactic Acid Venous 0.89 mmol/L 0.64 mmol/L Test 01/03/18 05:40 Creatinine 0.65 mg/dl Est Creatinine Clear Calc Drug Dose 88.5 ml/min Estimated GFR () 106.5 Estimated GFR (Non- 91.9 Assessment & Plan (1) UTI (urinary tract infection) Status: Acute Assessment & Plan: continue ertapenem and fluconaozle for now follow cultures. dobut pna, can stop vanco from ID standpoint. will follow, thank you
--- NOTE | 2018-01-03 14:29 | Progress Note ---
Subjective Date of Service: Jan 03, 2018. Subjective Pt evaluation today including: conversation w/ patient, physical exam, lab review, conversation w/ heritage consultant, review of inpatient medication list Pain: bladder pain resolved PO Intake: adequate Voiding: no voiding problems patient feeling better, no fever/chills, no bladder pain like she had on admission reviewed labs, certainly there are signs of UTI on UA, urine culture with pinpoint growth, re-incubating reviewed repeat CXR personally, no signs of pneumonia, just atelectasis, also, patient without symptoms of pneumonia discussed with Dr. Cui, appreciate recommendations Problem List Medical Problems: (1) Pneumonia Status: Acute (2) Sepsis Status: Acute (3) UTI (urinary tract infection) Status: Acute Review of Systems All Other Systems: Reviewed and Negative Medications Current Inpatient Medications Medications (Trade) Dose Ordered Sig/Messi Route Start Time Stop Time Status Last Admin Dose Admin Acetaminophen (Tylenol Tab) 650 mg Q4H PRN PO 01/02/18 20:15 02/01/18 20:14 Magnesium Hydroxide (Milk Of Magnesia Susp) 30 ml Q6H PRN PO 01/02/18 20:15 02/01/18 20:14 Ondansetron HCl (Zofran Inj) 4 mg Q6H PRN IV 01/02/18 20:15 02/01/18 20:14 Aspirin (Ecotrin Tab) 81 mg HS PO 01/02/18 21:00 02/01/18 20:59 01/02/18 22:39 81 MG Atenolol (Tenormin Tab) 50 mg QAM PO 01/03/18 09:00 02/02/18 08:59 01/03/18 08:03 50 MG Ertapenem 1000 mg/ Sodium Chloride 60 ml @ 120 mls/hr Q24H IV 01/03/18 19:00 01/08/18 18:59 Vancomycin HCl (Consult) 1 ea UD PRN N/A 01/02/18 20:30 02/01/18 20:29 Miscellaneous (Iv Fluids Completed) 1 ea PRN PRN N/A 01/02/18 20:45 01/02/19 20:44 Hydralazine HCl (HydrALAZINE INJ) 10 mg Q4H PRN IV. 01/02/18 20:45 02/01/18 20:44 Vancomycin HCl 1250 mg/Sodium Chloride 275 ml @ 125 mls/hr Q12H IV 01/03/18 09:00 01/09/18 23:59 01/03/18 08:03 125 MLS/HR Fluconazole/ Sodium Chloride 100 mg/Prmx 50 ml @ 100 mls/hr Q24H IV 01/03/18 12:00 01/13/18 11:59 01/03/18 11:49 100 MLS/HR Objective Vital Signs Date Time Temp Pulse Resp B/P (MAP) Pulse Ox O2 Delivery O2 Flow Rate FiO2 01/03/18 11:24 36.8 66 20 104/58 (73) 94 01/03/18 07:49 36.9 74 20 107/61 (76) 95 01/03/18 07:30 Room Air 01/03/18 03:40 37.0 82 16 122/67 (85) 96 Room Air 01/03/18 00:00 Room Air 01/02/18 23:01 37.1 01/02/18 22:56 37.2 83 22 100/58 (72) 94 Room Air 01/02/18 22:12 37.8 93 22 113/64 95 Room Air 01/02/18 21:45 37.8 93 22 113/64 (80) 94 Room Air 01/02/18 20:59 Nasal Cannula 2.0 01/02/18 20:45 85 20 140/69 92 Room Air 01/02/18 19:02 97 Room Air 01/02/18 18:06 39.4 83 18 170/85 98 Room Air Physical Exam General Appearance: no apparent distress, + obese Eyes: normal inspection, EOMI, sclerae normal ENT: normal ENT inspection, hearing grossly normal, pharynx normal Neck: supple, no adenopathy, no JVD, trachea midline Respiratory/Chest: chest non-tender, lungs clear, no respiratory distress, no accessory muscle use, + decreased breath sounds (bases) Cardiovascular: regular rate, rhythm, no edema, no gallop, no JVD, no murmur Abdomen: normal bowel sounds, non tender, soft, no organomegaly Extremities: normal range of motion, non-tender, normal inspection, no pedal edema, no calf tenderness, pelvis stable 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, no motor/sensory deficits, alert, normal mood/affect, oriented x 3 Skin: normal color, warm/dry, no rash Laboratory Results Last 24 Hours Test 01/02/18 18:15 01/02/18 18:30 01/02/18 18:50 01/02/18 19:15 Urine Color DK YELLOW Urine Appearance TURBID Urine pH 6.0 Urine Specific [place] 1.009 Urine Protein 1+ Urine Glucose (UA) NEG Urine Ketones NEG Urine Occult Blood 2+ Urine Nitrite POS Urine Bilirubin NEG Urine Urobilinogen NEG Urine Leukocyte Esterase LARGE Urine WBC (Auto) >30 /hpf Urine RBC (Auto) 10-30 /hpf Urine Hyaline Casts (Auto) 1-5 /lpf Urine Epithelial Cells (Auto) 10-20 /lpf Urine Bacteria (Auto) NEG Urine Pathogenic Casts /lpf Urine Yeast (Auto) BUDDING Urine Sperm (Auto) White Blood Count 11.33 K/uL Red Blood Count 5.11 M/uL Hemoglobin 14.2 g/dL Hematocrit 41.9 % Mean Corpuscular Volume 82.0 fL Mean Corpuscular Hemoglobin 27.8 pg Mean Corpuscular Hemoglobin Concent 33.9 g/dl Platelet Count 100 K/uL Mean Platelet Volume 9.7 fL Neutrophils (%) (Auto) 92.9 % Lymphocytes (%) (Auto) 3.1 % Monocytes (%) (Auto) 2.6 % Eosinophils (%) (Auto) 0.9 % Basophils (%) (Auto) 0.1 % Neutrophils # (Auto) 10.54 K/uL Lymphocytes # (Auto) 0.35 K/uL Monocytes # (Auto) 0.29 K/uL Eosinophils # (Auto) 0.10 K/uL Basophils # (Auto) 0.01 K/uL RDW Standard Deviation 42.3 fL RDW Coefficient of Variation 14.2 % Immature Granulocyte % (Auto) 0.4 % Immature Granulocyte # (Auto) 0.04 K/uL Prothrombin Time 10.2 SECONDS Prothromb Time International Ratio 1.0 Activated Partial Thromboplast Time 23.3 SECONDS Partial Thromboplastin Ratio 0.9 Sodium Level 139 mmol/L Potassium Level 4.0 mmol/L Chloride Level 104 mmol/L Carbon Dioxide Level 26 mmol/L Anion Gap 9.0 mmol/L Blood Urea Nitrogen 12 mg/dl Creatinine 0.90 mg/dl Est Creatinine Clear Calc Drug Dose 63.9 ml/min Estimated GFR () 76.7 Estimated GFR (Non- 66.2 BUN/Creatinine Ratio 13.5 Random Glucose 103 mg/dl Calcium Level 9.0 mg/dl Total Bilirubin 0.7 mg/dl Aspartate Amino Transf (AST/SGOT) 20 U/L Alanine Aminotransferase (ALT/SGPT) 26 U/L Alkaline Phosphatase 85 U/L Total Protein 7.4 gm/dl Albumin 3.6 gm/dl Globulin 3.8 gm/dl Albumin/Globulin Ratio 0.9 Bedside Lactic Acid Venous 0.89 mmol/L 0.64 mmol/L Test 01/03/18 05:40 Creatinine 0.65 mg/dl Est Creatinine Clear Calc Drug Dose 88.5 ml/min Estimated GFR () 106.5 Estimated GFR (Non- 91.9 Assessment and Plan Patient is a 67 year old female with a 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 that presents with fever and urinary symptoms Recurrent UTI outpatient culture in early December grew E coli, [place] sensitive options to treat limited by allergies completed a 14 day course of Omnicef, was off for 6 days and dysuria, frequency returned abruptly continue Ertapenem and Diflucan (yeast seen in UA), stop Vanco afebrile follow up on urine and blood cultures appreciate ID consultation Abnormal CXR: upon review this is just atelectasis stop Vanco no cough, no dyspnea, lungs clear on exam with decreased BS in bases Hypertension - Continue home Atenolol - PRN Hydralazine DVT - SCDs Code Status - Full Resuscitation plan to go home once final urine culture back, abx will be per ID
[2018-01-03 15:23] VITALS: BP 131/76; PULSE 67; TEMP 37; O2SAT 97
[2018-01-03 18:59] VITALS: BP 128/77; PULSE 76; TEMP 37.2; O2SAT 94
[2018-01-03] MEDS ORDERED: ERTAPENEM IV 1,000 MG in SODIUM CHLOR 0.9% AD-VAN 50ML 50 ML IV SCH (19:00)
[2018-01-03] MEDS: ASPIRIN 81 MG ECTAB PO SCH (20:36)
[2018-01-03 23:04] VITALS: BP 116/62; PULSE 68; TEMP 36.9; O2SAT 93
[2018-01-04 04:55] VITALS: BP 125/67; PULSE 63; TEMP 36.6; O2SAT 93
[2018-01-04 06:06] LABS: MEAN CELL VOLUME 83.3 fL (80-100); MEAN CORPUSCULAR HGB CONC 32.4 g/dl (32-36); RED CELL DISTRIBUTION WIDTH CV 14.5 % (11.5-14.5); WHITE BLOOD COUNT 5.74 K/uL (4.8-10.8)
[2018-01-04 06:34] LABS: BASO % 0.2 %; BASO ABS # 0.01 K/uL (0-0.2); EOS % 4.5 %; EOS ABS # 0.26 K/uL (0-0.5); IG# 0.03 K/uL (0.00-0.02); LYMPH % 14.3 %; LYMPH ABS # 0.82 K/uL (1.2-3.4); MEAN PLATELET VOLUME 9.9 fL (7.4-10.4); MONO % 6.8 %; MONO ABS # 0.39 K/uL (0.11-0.59); NEUT % 73.7 %; NEUT ABS # 4.23 K/uL (1.4-6.5); PLATELET COUNT 81 K/uL (130-400)
[2018-01-04 06:42] LABS: CALCIUM 8.3 mg/dl (8.5-10.1); CREATININE 0.66 mg/dl (0.60-1.20); POTASSIUM 3.8 mmol/L (3.5-5.1)
[2018-01-04 07:29] VITALS: BP 138/75; PULSE 63; TEMP 36.7; O2SAT 94
[2018-01-04] MEDS ORDERED: VANCOMYCIN TROUGH ONE (08:30)
[2018-01-04] MEDS ORDERED: FLUCONAZOLE 100 MG TAB PO ONE (09:52)
[2018-01-04] MEDS ORDERED: CEPHALEXIN MONOHYDRATE 500 MG CAP PO ONE (10:00)
[2018-01-04] MEDS ORDERED: CEFDINIR 300 MG CAP PO ONE (10:00)
[2018-01-04] MEDS ORDERED: DFL100 PO (10:06)
--- NOTE | 2018-01-04 10:10 | Discharge Instructions ---
Discharge Instructions Date of Service Jan 04, 2018. Admission Reason for Admission: Failure Of Outpatient Treatment for UTI Discharge Discharge Diagnosis / Problem: UTI, possible fungal UTI Discharge Goals Goal(s): Improve function, Improve disease control Activity Recommendations Activity Limitations: resume your previous activity . Instructions / Follow-Up Instructions / Follow-Up Medications: - CEFDINIR: continue the prescription given by Dr. Cui, next dose is due this evening - DIFLUCAN: antifungal, continue 5 more days which would be 7 days total ( received two days in the hospital) - SIMVASTATIN: hold for the next 5 days while on Diflucan, can continue after that UTI, complicated, recurrent will treat with Cefdinir and Diflucan follow up with Dr. Beltrán on Tuesday as previously scheduled can follow up with Dr. Cui in 10-14 days, call her office for appointment Current Hospital Diet Patient's current hospital diet: AHA Diet (Heart Healthy) Discharge Diet Recommended Diet: AHA Diet (Heart Healthy) Pending Studies Studies pending at discharge: no Medical Emergencies . Who to Call and When: Medical Emergencies: If at any time you feel your situation is an emergency, please call 911 immediately. . Non-Emergent Contact Non-Emergency issues call your: Urologist, Specialist (Dr. Ciu) Call Non-Emergent contact if: you have a fever, your pain is worsening, you have any medication questions . . "Provider Documentation" section prepared by Vern Julian. . [place] Drug Monitoring Program Search Results: no issues identified
[2018-01-04 10:22] VITALS: BP 138/75; PULSE 63; TEMP 36.7; O2SAT 94
--- NOTE | 2018-01-04 10:26 | Discharge Summary ---
Discharge Summary Date of Service Jan 04, 2018. Discharge Summary Admission Date: Jan 02, 2018 at 20:50 Discharge Date: Jan 04, 2018 Discharge Disposition: Home Principal Diagnosis: Complicated, recurrent UTI Problems/Secondary Diagnoses: Fungal UTI, cystitis Immunizations: Have You Had Influenza Vaccine: Unknown History of Tetanus Vaccine?: Unknown History of Pneumococcal: Unknown History of Hepatitis B Vaccine: Unknown Procedures: none Consultations: Infectious disease Medication Reconciliation New Medications: Fluconazole (Fluconazole) 100 Mg Tab 200 MG PO QAM, #5 TAB 0 Refills Continued Medications: Aspirin (Aspirin Ec) 81 Mg Tab 81 MG PO HS Atenolol (Tenormin) 50 Mg Tab 50 MG PO QAM, TAB Cefdinir (Omnicef) 300 Mg Cap 300 MG PO Q12H, CAP BEGIN 01/02/18 X 7 DAYS. 3RD ROUND Cranberry (Vaccinium Macrocarp (Cranberry) 300 Mg Tab 300 MG PO TID Omeprazole (Prilosec) 20 Mg Capcr 20 MG PO DAILY, CAP Phenazopyridine HCl (Pyridium) 200 Mg Tab 200 MG PO TID PRN for Pain, TAB Discontinued Medications: Simvastatin (Simvastatin) 20 Mg Tab 20 MG PO HS Discharge Exam Patient feeling better, minimal bladder pressure but no burning, no frequency, no incontinence. No fever/chills. Eating well. Discussed discharge plans, questions answered. Review of Systems: Constitutional: No fever, No chills, No sweats, No weight loss, No weakness , No fatigue, No problem reported Eyes: No worsening of vision, No eye pain, No redness, No discharge, No diplopia, No problem reported ENT: No hearing loss, No unusual epistaxis, No nasal symptoms, No sore throat, No tinnitus, No dental problems, No trouble swallowing, No problem reported Respiratory: No cough, No sputum, No wheezing, No shortness of breath, No dyspnea on exertion, No dyspnea at rest, No hemoptysis, No problem reported Cardiovascular: No chest pain, No orthopnea, No PND, No edema, No claudication, No palpitations, No problem reported Abdomen: No pain, No nausea, No vomiting, No diarrhea, No constipation, No GI bleeding, No problem reported Musculoskeletal: No joint pain, No muscle pain, No swelling, No calf pain, No problem reported Genitourinary - Female: + problem reported (mild bladder pressure), No dysuria, No urinary frequency, No urinary urgency, No urinary incontinence, No urinary retention, No hematuria Neurologic: No memory loss, No paralysis, No weakness, No numbness/tingling , No vertigo, No balance problems, No problem reported Psychiatric: No depression symptoms, No anhedonism, No anxiety, No insomnia , No substance abuse, No problem reported Endocrine: No fatigue, No excessive thirst, No excessive urination, No problem reported Hematologic / Lymphatic: No abnormal bleeding/bruising, No clotting problems , No swollen lymph nodes, No night sweats, No problem reported Integumentary: No rash, No itch, No new/changing skin lesions, No color change, No bleeding, No problem reported Physical Exam: General Appearance: no apparent distress, + obese Eyes: normal inspection, EOMI, sclerae normal ENT: normal ENT inspection, hearing grossly normal, pharynx normal Neck: supple, no adenopathy, no JVD, trachea midline Respiratory/Chest: chest non-tender, lungs clear, normal breath sounds, no respiratory distress, no accessory muscle use Cardiovascular: regular rate, rhythm, no edema, no gallop, no JVD, no murmur , normal peripheral pulses Abdomen / GI: normal bowel sounds, non tender, soft, no organomegaly Extremities: normal inspection, no calf tenderness, normal capillary refill , no pedal edema, normal range of motion, pelvis stable 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, no motor/sensory deficits , alert, normal mood/affect, normal reflexes, oriented x 3 Skin: normal color, warm/dry, no rash Lymphatic: no adenopathy Hospital Course Patient is a 67 year old female with a 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 that presents with fever and urinary symptoms Recurrent UTI outpatient culture in early December grew E coli, only resistant to Bactrim to which she is allergic anyway options to treat limited by allergies (PCN, Bactrim, Quinolones, Gentamicin) completed a 14 day course of Omnicef, was off for 6 days and dysuria, frequency returned abruptly treated with Ertapenem and Diflucan (yeast seen in UA), stopped Vanco afebrile, WBC normal follow up on urine and blood cultures - no growth d/c home on Cefdinir for 13 more doses, Diflucan 200mg daily x 5 more doses ( received 2 in the hospital) follow up with Dr. Beltrán on Tuesday 01/09 as previously scheduled can follow up with Dr. Cui if needed in 10-14 days Abnormal CXR: upon review this is just atelectasis stop Vanco no cough, no dyspnea, lungs clear on exam with decreased BS in bases Hypertension - Continue home Atenolol - PRN Hydralazine Dyslipidemia: hold Zocor for 5 days due to interaction with Diflucan DVT - SCDs Code Status - Full Resuscitation d/c to home Total Time Spent: Greater than 30 minutes This includes examination of the patient, discharge planning, medication reconciliation, and communication with other providers. Discharge Instructions Please refer to the electronic Patient Visit Report (Discharge Instructions) for additional information. Follow-Up Dr. Beltrán on 01/09 Dr. Luis as needed Dr. Cui in 10-14 days as needed Additional Copies To Johnny Luis D.O.; Kwesi Beltrán MD; Jennifer. Cui D.O.
--- NOTE | 2018-01-04 10:58 | Progress Note ---
Subjective Date of Service: Jan 04, 2018. Subjective pt urine culture contaminated. blood cultures negative, afebrile. tolerating abx. has omnicef at home. wbc nml. spoke with primary for d/c today. Problem List Medical Problems: (1) Pneumonia Status: Acute (2) Sepsis Status: Acute (3) UTI (urinary tract infection) Status: Acute Objective Vital Signs Date Time Temp Pulse Resp B/P (MAP) Pulse Ox O2 Delivery O2 Flow Rate FiO2 01/04/18 10:22 36.7 63 16 94 Room Air 01/04/18 07:55 Room Air 01/04/18 07:29 36.7 63 16 138/75 (96) 94 Room Air 01/04/18 04:55 36.6 63 18 125/67 (86) 93 Room Air 01/04/18 00:00 Room Air 01/03/18 23:04 36.9 68 20 116/62 (80) 93 Room Air 01/03/18 18:59 37.2 76 18 128/77 (94) 94 Room Air 01/03/18 16:00 Room Air 01/03/18 15:23 37.0 67 20 131/76 (94) 97 Room Air 01/03/18 11:24 36.8 66 20 104/58 (73) 94 Laboratory Results Item Value Date Time Urine Culture - Final Complete 01/02/18 1815 Urine , Clean Catch MORE THAN THREE TYPES OF ORGANISMS AZ... Blood Culture - Preliminary Resulted 01/02/18 1850 Blood NO GROWTH TO DATE. Blood Culture - Preliminary Resulted 01/02/18 1905 Blood NO GROWTH TO DATE. Last 24 Hours Test 01/04/18 05:29 White Blood Count 5.74 K/uL Red Blood Count 4.44 M/uL Hemoglobin 12.0 g/dL Hematocrit 37.0 % Mean Corpuscular Volume 83.3 fL Mean Corpuscular Hemoglobin 27.0 pg Mean Corpuscular Hemoglobin Concent 32.4 g/dl Platelet Count 81 K/uL Mean Platelet Volume 9.9 fL Neutrophils (%) (Auto) 73.7 % Lymphocytes (%) (Auto) 14.3 % Monocytes (%) (Auto) 6.8 % Eosinophils (%) (Auto) 4.5 % Basophils (%) (Auto) 0.2 % Neutrophils # (Auto) 4.23 K/uL Lymphocytes # (Auto) 0.82 K/uL Monocytes # (Auto) 0.39 K/uL Eosinophils # (Auto) 0.26 K/uL Basophils # (Auto) 0.01 K/uL RDW Standard Deviation 44.0 fL RDW Coefficient of Variation 14.5 % Immature Granulocyte % (Auto) 0.5 % Immature Granulocyte # (Auto) 0.03 K/uL Platelet Estimate DECREASED Red Blood Cell Morphology Unremarkable Sodium Level 141 mmol/L Potassium Level 3.8 mmol/L Chloride Level 109 mmol/L Carbon Dioxide Level 25 mmol/L Anion Gap 7.0 mmol/L Blood Urea Nitrogen 11 mg/dl Creatinine 0.66 mg/dl Est Creatinine Clear Calc Drug Dose 87.2 ml/min Estimated GFR () 105.9 Estimated GFR (Non- 91.4 BUN/Creatinine Ratio 17.3 Random Glucose 79 mg/dl Calcium Level 8.3 mg/dl Assessment and Plan (1) UTI (urinary tract infection) Assessment & Plan: would continue omnicef as planned as outpt and add fluconazole x 7 days to treat yeast seen on UA.
[2018-01-04 11:18] VITALS: BP 133/78; PULSE 61; TEMP 36.7; O2SAT 94
[2018-01-05] MEDS ORDERED: FLUCONAZOLE 100 MG TAB PO SCH (09:00)
== END 2018-01-04 13:10 | disposition home or self-care (01) | DRG 690 ==
LOC: C.EDB 17:53 → CANRESERV 20:38 → ENRESERV 20:38 → C.MED 20:50 → EDBEDREQSVC 21:01 → EDBEDREQ 21:01 → ENRESERV 21:15
PROVIDERS: ADMIT Student in an Organized Health Care Education/Training Program; ATTEND Internal Medicine
DX: N39.0 Urinary tract infection, site not specified (principal); B49 Unspecified mycosis; J98.11 Atelectasis; I10 Essential (primary) hypertension; E78.5 Hyperlipidemia, unspecified; Z79.899 Other long term (current) drug therapy; Z79.82 Long term (current) use of aspirin; Z16.29 Resistance to other single specified antibiotic; Z87.440 Personal history of urinary (tract) infections; Z88.0 Allergy status to penicillin; Z88.1 Allergy status to other antibiotic agents; Z88.2 Allergy status to sulfonamides; Z82.49 Family history of ischemic heart disease and other diseases of the circulatory system; Z83.3 Family history of diabetes mellitus

== ENCOUNTER 2019-05-23 21:10 | Inpatient (IN) ==
[2019-05-23 21:48] LABS: Appearance Urine Turbid (Clear); Bacteria Urine Automated Negative (Negative); Bilirubin Urine Negative (Negative); Blood Urine 1+ (Negative); Color Urine Yellow; Glucose Urine UA Negative (Negative); Ketones Urine Negative (Negative); Leukocyte Esterase Urine 3+ (Negative); Nitrite Urine Negative (Negative); Protein Urine Trace (Negative); RBC Urine Automated 0-4 /hpf (0-4); Specific Gravity Urine 1.006 (1.000-1.030); Urobilinogen Urine Negative (Negative); WBC Urine Automated >30 /hpf (0-5)
[2019-05-23 22:03] LABS: Basophils # (auto) 0.02 K/uL (0-0.2); Basophils % (auto) 0.2 %; Eosinophils # (auto) 0.29 K/uL (0-0.5); Eosinophils % (auto) 2.6 %; Hematocrit (blood only) 39.6 % (37-47); Hemoglobin 12.9 g/dL (12.0-16.0); Immature Granulocytes # (auto) 0.04 K/uL (0.00-0.02); Immature Granulocytes % (auto) 0.4 %; Lymphocytes # (auto) 1.02 K/uL (1.2-3.4); Mean Corpuscular Hemoglobin 27.6 pg (25-34); Mean Corpuscular Hgb Conc 32.6 g/dL (32-36); Mean Corpuscular Volume 84.8 fL (80-100); Mean Platelet Volume 9.5 fL (7.4-10.4); Monocytes # (auto) 0.67 K/uL (0.11-0.59); Monocytes % (auto) 5.9 %; Neutrophils # (auto) 9.24 K/uL (1.4-6.5); Neutrophils % (auto) 81.9 %; Platelet Count 111 K/uL (130-400); RDW Coefficient of Variation 14.2 % (11.5-14.5); RDW Standard Deviation 44.1 fL (36.4-46.3); Red Blood Count 4.67 M/uL (4.2-5.4); White Blood Count 11.28 K/uL (4.8-10.8)
[2019-05-23] MEDS ORDERED: LORazepam 0.5 MG/1 ML VIAL IV STA (22:05)
[2019-05-23] MEDS ORDERED: SODIUM CHLORIDE 0.9% 1000ML 500 ML IV ONE (22:05)
[2019-05-23 22:14] LABS: Partial Thromboplastin Ratio 0.9; Partial Thromboplastin Time 24.1 Seconds (21.0-31.0); Prothrombin Time 9.9 Seconds (9.0-12.0)
[2019-05-23 22:20] LABS: Alanine Aminotransferase 20 U/L (12-78); Albumin Level 3.3 gm/dl (3.4-5.0); Aspartate Aminotransferase 20 U/L (15-37); BUN Creatinine Ratio 14.7 (10-20); Blood Urea Nitrogen 11 mg/dl (7-18); Carbon Dioxide 30 mmol/L (21-32); Chloride 108 mmol/L (98-107); Creatinine Clr Calc Pharmacy 75.6 ml/min; Est GFR (African American) 93.4; Est GFR (Non-African American) 80.6; Glucose 106 mg/dl (70-99); Magnesium 1.8 mg/dl (1.8-2.4); Potassium 4.1 mmol/L (3.5-5.1); Sodium 142 mmol/L (136-145)
[2019-05-23 22:24] LABS: Albumin Globulin Ratio 0.9 (0.9-2); Alkaline Phosphatase 86 U/L (45-117); Bilirubin,Total 0.4 mg/dl (0.2-1); Globulin 3.5 gm/dl (2.5-4.0); Total Protein 6.8 gm/dl (6.4-8.2); Troponin I < 0.015 ng/ml (0-0.045)
[2019-05-23] MEDS ORDERED: IMIPENEM/CILASTATIN SODIUM 500 MG in DEXTROSE 5% 100 ML IV STA (22:24)
--- NOTE | 2019-05-23 22:29 | XRay Report ---
XR chest 1V portable HISTORY: SEPSIS COMPARISON: Chest 01/02/2018. FINDINGS: No pneumothorax. No pleural effusions. The heart remains enlarged. No evidence for pulmonar y edema. No focal lung consolidations to suggest pneumonia. Increased markings at the lung bases. Thi s favors atelectasis/dependent change. IMPRESSION: 1. Stable mild cardiomegaly. 2. Bibasilar densities favor atelectasis. ACT 112: Negative or not required by law. Electronically signed by: Wally Farris M.D. 05/23/2019 10:28 PM
[2019-05-23] MEDS ORDERED: IOVERSOL 100ml IV PRN (22:35)
--- NOTE | 2019-05-23 22:52 | CT Scan Report ---
ABDOMEN AND PELVIS CT WITH IV CONTRAST CT DOSE: 1302.95 mGy.cm HISTORY: Lower abdominal pain. TECHNIQUE: Multiaxial CT images of the abdomen and pelvis were performed following the use of intrave nous contrast. A dose lowering technique was utilized adhering to the principles of ALARA. COMPARISON STUDY: Abdomen and pelvis CT 10/11/2013. FINDINGS: Mild peripheral densities at the lung bases which may represent chronic interstitial change . No pneumoperitoneum. No pneumatosis. No suspicious lytic or blastic osseous lesions. A single mildl y enlarged right infrahilar lymph node measuring 1 cm. Moderate size fat-containing umbilical hernia. The hernia sac measures 6.8 cm. The hernia neck measures 2.5 cm. Thickening within the lower anterio r bladder wall as seen on images 370 through 387.. There is a large anterior bladder diverticulum. Th e uterus and bilateral adnexa are unremarkable. The kidneys enhance normally. There is mild left hydr oureteronephrosis with focal distal tapering within the left ureter at the level of the ureterovesica l junction. This is best seen on image 360. No renal or ureteral stones. No right-sided hydronephrosi s. Question of a 2 mm focus of enhancement within the left renal pelvis image 157. No retroperitoneal lymphadenopathy. Tiny hiatus hernia. A stable 1.5 cm hypodense lesion within the left hepatic lobe. This is likely benign in the long-term stability. Cholecystectomy. Spleen, adrenal glands, and pancre as are unremarkable. No bowel wall thickening or obstruction. Normal appendix. IMPRESSION: 1. Persistent thickening of the lower anterior bladder wall which could represent a chronic cystitis. Recommend correlation with urinalysis. 2. Mild left hydroureteronephrosis to the level of the ureterovesical junction where there is focal t apering of the distal left ureter. This could represent a focal stricture or occult urothelial lesion . No renal or ureteral stones. 3. There is also a questionable 2 mm nodular focus of enhancement within the left renal pelvis as daysi cribed above. This raises the possibility of a urothelial lesion. Nonemergent urology consultation re commended for further evaluation. 4. No bowel wall thickening or obstruction. 5. A single mildly enlarged right infrahilar lymph node measuring 1 cm. This is of uncertain clinical significance. 6. Additional findings as described above. ACT 112: Negative or not required by law. Electronically signed by: Wally Farris M.D. 05/23/2019 10:50 PM
--- NOTE | 2019-05-23 23:19 | Emergency Department Note ---
History of Present Illness General Chief complaint: Urinary Symptoms Stated complaint: URINARY SYMPTOMS, FEVER,UPSET STOMACH History of Present Illness Maximum Pain Intensity: 5 This 68-year-old presents to the ER complaining of increasing urinary symptoms with lower abdominal pain and fever for the past day who follows with Dr. Kaufman and is on chronic Macrobid for recurrent UTI Location: Lower abdomen Quality: Crampy Severity: Moderate Duration: Today Timing: Symptoms got worse today Context: Patient was concerned and came in Modifying factors: better with nothing; worse with urinating Patient states she had a fever of 100 today. She has multiple drug allergies. She takes Macrobid daily. She had a bladder biopsy 3 years ago by urology and was negative. Nothing since. Patient denies chest pain, dyspnea, cough, vomiting, diarrhea. She states she has been moving her bowels. Home Medications Home Medications Medication Instructions Recorded Confirmed Type atenolol 50 mg tablet 50 mg PO QAM tab 12/12/18 05/23/19 History omeprazole 20 mg capsule,delayed 20 mg PO QAM #90 cap 12/12/18 05/23/19 History release simvastatin 20 mg tablet 20 mg PO QPM 01/17/19 05/23/19 History Myrbetriq 25 mg PO QPM 01/18/19 05/23/19 History Premarin 0.3125 mg VAGINAL 3XWK 01/18/19 05/23/19 History ascorbic acid (vitamin C) [Vitamin 500 mg PO HS 01/18/19 05/23/19 History C] aspirin 81 mg PO HS 01/18/19 05/23/19 History phenazopyridine 200 mg tablet 200 mg PO TID PRN #20 tab 01/23/19 05/23/19 Rx nitrofurantoin 100 mg PO DAILY #30 cap 03/19/19 05/23/19 Rx monohydrate/macrocrystals 100 mg capsule Allergies Allergy/AdvReac Type Severity Reaction Status Date / Time Bactrim Allergy Intermediate EYE Verified 12/20/17 05:42 IRRITATION ciprofloxacin Allergy Intermediate LE EDEMA Verified 05/23/19 23:03 fluconazole [From Diflucan] Allergy Intermediate EYE Verified 05/23/19 23:03 IRRITATION levofloxacin Allergy Intermediate BLURRY Verified 05/23/19 23:03 VISION Penicillins Allergy Intermediate HIVES Verified 05/23/19 23:03 sulfamethoxazole Allergy Intermediate EYE Verified 05/23/19 23:03 IRRITATION trimethoprim Allergy Intermediate EYE Verified 05/23/19 23:03 IRRITATION cephalexin Allergy Unknown UNSURE OF Verified 05/23/19 23:03 REACTION Cipro Allergy Unknown "EXCESS Verified 12/20/17 05:42 FLUID NOTED" gentamicin AdvReac Intermediate Blurry Verified 05/23/19 23:03 vision codeine AdvReac Mild DYSPEPSIA Verified 03/19/19 15:28 Past Med/Surg History Medical History Frequent UTI GERD (gastroesophageal reflux disease) controlled Hyperlipidemia Hypertension Osteoarthritis Urinary leakage Yeast infection improving on diflucan (to be completed prior to surgery)- patient states she will contact surgeon if not resolved prior to surgery Surgical History History of back surgery History of bilateral tubal ligation History of biopsy of bladder BENIGN History of cholecystectomy History of colonoscopy History of hysteroscopy D&C, hysteroscopy: 11/04/17: LMA#4 at [facility] History of tooth extraction Uterine polyp REMOVED Family History Mother Diabetes Sister Diabetes Other Heart disease Hyperlipidemia Social History Preferred Language: Romanian Communication Ability: Effective Sr. Media Manager Required: No Beliefs That Will Affect Care: None Current Living Situation: Alone Feels Safe at Home: Yes Smoking Status: Never smoker Second Hand Exposure: Yes (IN THE PAST) ; Hx Alcohol Use: No Hx Substance Use: No Review of Systems A total of 10 systems reviewed and were otherwise negative Physical Exam Vital Signs Vital Signs - 24 hr 05/23/19 21:12 05/23/19 21:50 05/23/19 22:00 Temperature 37.2 C Temperature Source Oral Pulse Rate 84 79 Pulse Rate [Finger] 78 Pulse Rate from SpO2 Sensor 78 Respiratory Rate 18 20 24 Respiratory Effort / Characteristics Non-Labored Spontaneous Non-Labored Spontaneous Respiratory Depth Normal Normal Respiratory Pattern Regular Blood Pressure 190/84 H 149/69 H Blood Pressure [Left Arm] 150/72 H Blood Pressure Mean 119 105 Blood Pressure Mean [Left Arm] 98 Blood Pressure Position Sitting Blood Pressure Position [Left Arm] Pulse Oximetry 92 97 98 Oxygen Delivery Method Room Air Room Air Room Air Sepsis Recent Fever Within 48 Hours No Sepsis Action Taken by Nursing No Action Required 05/23/19 22:09 05/23/19 22:10 05/23/19 22:15 Temperature Temperature Source Pulse Rate 78 77 77 Pulse Rate [Finger] Pulse Rate from SpO2 Sensor 77 77 77 Respiratory Rate 24 24 25 H Respiratory Effort / Characteristics Respiratory Depth Respiratory Pattern Blood Pressure 147/59 H Blood Pressure [Left Arm] Blood Pressure Mean 83 Blood Pressure Mean [Left Arm] Blood Pressure Position Blood Pressure Position [Left Arm] Pulse Oximetry 96 96 95 Oxygen Delivery Method Room Air Room Air Room Air Sepsis Recent Fever Within 48 Hours Sepsis Action Taken by Nursing 05/23/19 22:20 05/23/19 22:30 05/23/19 23:14 Temperature Temperature Source Pulse Rate 78 Pulse Rate [Finger] 78 Pulse Rate from SpO2 Sensor 77 Respiratory Rate 16 18 Respiratory Effort / Characteristics Non-Labored Spontaneous Respiratory Depth Normal Respiratory Pattern Regular Blood Pressure 150/67 H Blood Pressure [Left Arm] 176/88 H Blood Pressure Mean 111 Blood Pressure Mean [Left Arm] 117 Blood Pressure Position Blood Pressure Position [Left Arm] Sitting Pulse Oximetry 97 96 Oxygen Delivery Method Room Air Room Air Room Air Sepsis Recent Fever Within 48 Hours Sepsis Action Taken by Nursing VITALS: Vitals are noted on the nurse's note and reviewed by myself. Vital signs hypertensive. GENERAL: Pleasant female who appears uncomfortable, in no acute distress, nondiaphoretic, well-developed well-nourished. SKIN: The skin was without rashes, erythema, edema, or bruising. There is no tenting of the skin. Capillary reflex less than 2 seconds. HEAD: Normocephalic atraumatic. EARS: External auditory canals clear EYES: Pupils equal round and reactive to light and accommodation. Conjunctivae without injection, sclerae without icterus. Extraocular movements intact. NOSE: Patent, turbinates without inflammation or discharge. MOUTH: Mucous membranes moist. Pharynx without erythema or exudate. Uvula midline. Airway patent. Tongue does not deviate. NECK: Supple without nuchal rigidity. No lymphadenopathy. No thyromegaly. Cervical spine is nontender. No JVD. HEART: Regular rate and rhythm LUNGS: Clear to auscultation bilaterally without wheezes, rales or rhonchi. No retractions or accessory muscle use. ABDOMEN: Positive bowel sounds x 4. Normal tympanic percussion. Soft, tender to palpation lower abdomen, without masses or organomegaly. Goins sign negativ e. No guarding or rebound tenderness. No CVA tenderness MUSCULOSKELETAL: No muscle atrophy, erythema, noted. NEURO: Patient was alert and oriented to person place and time. Normal sensation to light and sharp touch. No focal neurological deficits. Course Administered Medications Ioversol (Optiray 320 100ml) 94 ml IV ONCE PRN PRN Reason: Interaction Checking Stop: 05/27/19 22:34 Last Admin: 05/23/19 22:35 Dose: 94 ml Documented by: [id number] Discontinued Medications Sodium Chloride (Nss 1000ml) 500 mls @ 999 mls/hr IV .Q31M ONE Stop: 05/23/19 22:35 Last Infusion: 05/23/19 22:58 Dose: 0 mls/hr Documented by: [id number] Admin: 05/23/19 22:25 Dose: 999 mls/hr Documented by: [id number] Lorazepam (Ativan) 0.5 mg in 1 mls @ 1 mls/min IV NOW STA Stop: 05/23/19 22:06 Last Admin: 05/23/19 22:28 Dose: 1 mls/min Documented by: [id number] Imipenem/Cilastatin Sodium 500 (mg/ Dextrose) 110 mls @ 100 mls/hr IV NOW STA; Protocol Stop: 05/23/19 23:29 Last Admin: 05/23/19 23:09 Dose: 100 mls/hr Documented by: [id number] Medical Decision Making Medical Records Attestation: I reviewed the patient's medical records. Home Medications Current Medication List: was personally reviewed by me Laboratory Data Attestation: I reviewed the patient's lab results. Result diagrams: 05/23/19 21:50 05/23/19 21:50 Lab Results 05/23/19 05/23/19 05/23/19 Range/Units 21:30 21:50 21:50 WBC 11.28 H (4.8-10.8) K/uL RBC 4.67 (4.2-5.4) M/uL Hgb 12.9 (12.0-16.0) g/dL Hct 39.6 (37-47) % MCV 84.8 (80-100) fL MCH 27.6 (25-34) pg MCHC 32.6 (32-36) g/dL RDW Std Deviation 44.1 (36.4-46.3) fL RDW Coeff of Marisol 14.2 (11.5-14.5) % Plt Count 111 L (130-400) K/uL MPV 9.5 (7.4-10.4) fL Immature Gran % (Auto) 0.4 % Neut % (Auto) 81.9 % Lymph % (Auto) 9.0 % Rusk % (Auto) 5.9 % Eos % (Auto) 2.6 % Baso % (Auto) 0.2 % Immature Gran # (Auto) 0.04 H (0.00-0.02) K/uL Neut # (Auto) 9.24 H (1.4-6.5) K/uL Lymph # (Auto) 1.02 L (1.2-3.4) K/uL Rusk # (Auto) 0.67 H (0.11-0.59) K/uL Eos # (Auto) 0.29 (0-0.5) K/uL Baso # (Auto) 0.02 (0-0.2) K/uL PT 9.9 (9.0-12.0) Seconds INR 1.0 (0.9-1.1) APTT 24.1 (21.0-31.0) Seconds PTT Ratio 0.9 Sodium (136-145) mmol/L Potassium (3.5-5.1) mmol/L Chloride (98-107) mmol/L Carbon Dioxide (21-32) mmol/L Anion Gap (3-11) BUN (7-18) mg/dl Creatinine (0.6-1.2) mg/dl Est Cr Clr Drug Dosing ml/min Est GFR ( Amer) Est GFR (Non-Af Amer) BUN/Creatinine Ratio (10-20) Glucose (70-99) mg/dl POC Lactic Acid Dany (0.90-1.70) mmol/L Calcium (8.5-10.1) mg/dl Magnesium (1.8-2.4) mg/dl Total Bilirubin (0.2-1) mg/dl AST (15-37) U/L ALT (12-78) U/L Alkaline Phosphatase (45-117) U/L Troponin I (0-0.045) ng/ml Total Protein (6.4-8.2) gm/dl Albumin (3.4-5.0) gm/dl Globulin (2.5-4.0) gm/dl Albumin/Globulin Ratio (0.9-2) Urine Color Yellow Urine Appearance Turbid A (Clear) Urine pH 6.0 (4.5-7.5) Ur Specific Winter 1.006 (1.000-1.030) Urine Protein Trace H (Negative) Urine Glucose (UA) Negative (Negative) Urine Ketones Negative (Negative) Urine Blood 1+ H (Negative) Urine Nitrite Negative (Negative) Urine Bilirubin Negative (Negative) Urine Urobilinogen Negative (Negative) Ur Leukocyte Esterase 3+ H (Negative) Urine WBC (Auto) >30 H (0-5) /hpf Urine RBC (Auto) 0-4 (0-4) /hpf U Hyaline Cast (Auto) 1-5 (0-5) /lpf U Epithel Cells (Auto) 5-10 H (0-5) /lpf Urine Bacteria (Auto) Negative (Negative) Urine Yeast Budding A (None Prsent) 05/23/19 05/23/19 Range/Units 21:50 21:53 WBC (4.8-10.8) K/uL RBC (4.2-5.4) M/uL Hgb (12.0-16.0) g/dL Hct (37-47) % MCV (80-100) fL MCH (25-34) pg MCHC (32-36) g/dL RDW Std Deviation (36.4-46.3) fL RDW Coeff of Marisol (11.5-14.5) % Plt Count (130-400) K/uL MPV (7.4-10.4) fL Immature Gran % (Auto) % Neut % (Auto) % Lymph % (Auto) % Rusk % (Auto) % Eos % (Auto) % Baso % (Auto) % Immature Gran # (Auto) (0.00-0.02) K/uL Neut # (Auto) (1.4-6.5) K/uL Lymph # (Auto) (1.2-3.4) K/uL Rusk # (Auto) (0.11-0.59) K/uL Eos # (Auto) (0-0.5) K/uL Baso # (Auto) (0-0.2) K/uL PT (9.0-12.0) Seconds INR (0.9-1.1) APTT (21.0-31.0) Seconds PTT Ratio Sodium 142 (136-145) mmol/L Potassium 4.1 (3.5-5.1) mmol/L Chloride 108 H (98-107) mmol/L Carbon Dioxide 30 (21-32) mmol/L Anion Gap 4.0 (3-11) BUN 11 (7-18) mg/dl Creatinine 0.76 (0.6-1.2) mg/dl Est Cr Clr Drug Dosing 75.6 ml/min Est GFR ( Amer) 93.4 Est GFR (Non-Af Amer) 80.6 BUN/Creatinine Ratio 14.7 (10-20) Glucose 106 H (70-99) mg/dl POC Lactic Acid Dany 1.02 (0.90-1.70) mmol/L Calcium 9.0 (8.5-10.1) mg/dl Magnesium 1.8 (1.8-2.4) mg/dl Total Bilirubin 0.4 (0.2-1) mg/dl AST 20 (15-37) U/L ALT 20 (12-78) U/L Alkaline Phosphatase 86 (45-117) U/L Troponin I < 0.015 (0-0.045) ng/ml Total Protein 6.8 (6.4-8.2) gm/dl Albumin 3.3 L (3.4-5.0) gm/dl Globulin 3.5 (2.5-4.0) gm/dl Albumin/Globulin Ratio 0.9 (0.9-2) Urine Color Urine Appearance (Clear) Urine pH (4.5-7.5) Ur Specific Winter (1.000-1.030) Urine Protein (Negative) Urine Glucose (UA) (Negative) Urine Ketones (Negative) Urine Blood (Negative) Urine Nitrite (Negative) Urine Bilirubin (Negative) Urine Urobilinogen (Negative) Ur Leukocyte Esterase (Negative) Urine WBC (Auto) (0-5) /hpf Urine RBC (Auto) (0-4) /hpf U Hyaline Cast (Auto) (0-5) /lpf U Epithel Cells (Auto) (0-5) /lpf Urine Bacteria (Auto) (Negative) Urine Yeast (None Prsent) Imaging Data Attestation: I personally reviewed and interpreted this imaging study as follows: Blood Pressure Blood Pressure Findings: Elevated blood pressure Blood Pressure Disposition: Referred to patients primary care provider MDM Narrative Prior records/ancillary studies reviewed. Triage Nursing notes reviewed. The patient's history was concerning for abdominal pain. Differential diagnosis: Etiologies such as appendicitis, diverticulitis, PUD, biliary pathology, UTI, pancreatitis, obstruction, mesenteric ischemia, aortic pathology, infections, inflammatory bowel disease, renal colic, as well as others were entertained. Physical examination findings: As above. ER treatment provided: An order was placed for continuous cardiac monitoring. The monitor shows a rate of 6090 with a normal sinus rhythm. IV fluids, Primaxin On reassessment the patient felt better. Diagnostics interpreted by me: ECG: Ordered for weakness EKG: Normal sinus, normal intervals, no acute ST-T wave changes, rate of 80. Impression normal sinus rhythm interpreted by myself I think arrhythmia is unlikely. EKG shows normal sinus rhythm with no interval abnormalities such as QT prolongation or WPW. There are no findings to suggest Brugada syndrome. Cardiac monitoring in the emergency department reveals no tachycardic or bradycardic dysrhythmia. Hypertrophic cardiomyopathy was considered but there are no clear historical elements pointing toward this. EKG is not suggestive. The QRS voltage is not extremely large and there are no suggestive Q waves. The labs revealed leukocytosis, negative lactic acid Urine concerning for possible infection and sent for culture Prior urine cultures were concerning for candidiasis Imaging studies: ABDOMEN AND PELVIS CT WITH IV CONTRAST CT DOSE: 1302.95 mGy.cm HISTORY: Lower abdominal pain. TECHNIQUE: Multiaxial CT images of the abdomen and pelvis were performed following the use of intravenous contrast. A dose lowering technique was utilized adhering to the principles of ALARA. COMPARISON STUDY: Abdomen and pelvis CT 10/11/2013. FINDINGS: Mild peripheral densities at the lung bases which may represent chronic interstitial change. No pneumoperitoneum. No pneumatosis. No suspicious lytic or blastic osseous lesions. A single mildly enlarged right infrahilar lymph node measuring 1 cm. Moderate size fat-containing umbilical hernia. The hernia sac measures 6.8 cm. The hernia neck measures 2.5 cm. Thickening within the lower anterior bladder wall as seen on images 370 through 387.. There is a large anterior bladder diverticulum. The uterus and bilateral adnexa are unremarkable. The kidneys enhance normally. There is mild left hydroureteronephrosis with focal distal tapering within the left ureter at the level of the ureterovesical junction. This is best seen on image 360. No renal or ureteral stones. No right-sided hydronephrosis. Question of a 2 mm focus of enhancement within the left renal pelvis image 157. No retroperitoneal lymphadenopathy. Tiny hiatus hernia. A stable 1.5 cm hypodense lesion within the left hepatic lobe. This is likely benign in the long-term stability. Cholecystectomy. Spleen, adrenal glands, and pancreas are unremarkable. No bowel wall thickening or obstruction. Normal appendix. IMPRESSION: 1. Persistent thickening of the lower anterior bladder wall which could represent a chronic cystitis. Recommend correlation with urinalysis. 2. Mild left hydroureteronephrosis to the level of the ureterovesical junction where there is focal tapering of the distal left ureter. This could represent a focal stricture or occult urothelial lesion. No renal or ureteral stones. 3. There is also a questionable 2 mm nodular focus of enhancement within the l eft renal pelvis as described above. This raises the possibility of a urothelial lesion. Nonemergent urology consultation recommended for further evaluation. 4. No bowel wall thickening or obstruction. 5. A single mildly enlarged right infrahilar lymph node measuring 1 cm. This is of uncertain clinical significance. 6. Additional findings as described above. ACT 112: Negative or not required by law. Electronically signed by: Wally Farris M.D. 05/23/2019 10:50 PM XR chest 1V portable HISTORY: SEPSIS COMPARISON: Chest 01/02/2018. FINDINGS: No pneumothorax. No pleural effusions. The heart remains enlarged. No evidence for pulmonary edema. No focal lung consolidations to suggest pneumonia. Increased markings at the lung bases. This favors atelectasis/dependent change. IMPRESSION: 1. Stable mild cardiomegaly. 2. Bibasilar densities favor atelectasis. ACT 112: Negative or not required by law. Electronically signed by: Wally Farris M.D. 05/23/2019 10:28 PM Consultation: A consultation was placed with the pharmacist Petra and states Primaxin is safe to give. I then spoke to medicine, Dr. Mcadams. The case was discussed and diagnostics were reviewed. The patient was evaluated in the ER for further treatment. Exam and history seem consistent with UTI versus early pyelonephritis. Patient has multiple drug allergies. This was reviewed with pharmacist and Primaxin was given. Blood cultures are pending. Negative prior urine cultures. Patient does have abdominal pain and abnormal imaging with concerns of UTI versus early pyelonephritis who is on prophylactic antibiotics for recurrent UTIs. Medicine was consulted for admission. Patient is agreeable treatment plan of admission. Patient was reassessed multiple times. She remained stable. She was given Ativan for anxiety. By the evaluation outlined above emergent etiologies such as appendicitis, diverticulitis, PUD, biliary pathology, , pancreatitis, obstruction, mesenteric ischemia, aortic pathology, inflammatory bowel disease, renal colic, as well as others were deemed relatively unlikely. The pt informed about the findings as listed above. All questions were answered and pleased with the treatment. Case reviewed with my attending The chart was completed utilizing [employer] Speech voice recognition software. Grammatical errors, random word insertions, pronoun errors, and incomplete sentences are an occassional consequence of this system due to software limitations, ambient noise, and hardware issues. Any formal questions or concerns about the content, text, or information contained within the body of this dictation should be directly addressed to the physician regional administrative assistant for clarification. Impression & Plan Urinary tract infection, Abdominal pain Discharge Plan Visit Data Chief Complaint: Urinary Symptoms Stated Complaint: URINARY SYMPTOMS, FEVER,UPSET STOMACH ED Provider: Nabil Clayton ED Midlevel Provider: Mai Blancas Discharge Problem: Urinary tract infection, Abdominal pain Patient Disposition: Being Evaluated by Hospitalist Condition: Fair Forms Stand Alone Forms: [facility] Prescriptions Prescriptions: No Action phenazopyridine [Pyridium] 200 mg tablet 200 mg PO TID PRN (Reason: pain) Qty: 20 RF: 0 atenolol 50 mg tablet 50 mg PO QAM RF: 0 omeprazole 20 mg capsule,delayed release(DR/EC) 20 mg PO QAM Qty: 90 RF: 0 simvastatin 20 mg tablet 20 mg PO QPM RF: 0 nitrofurantoin monohyd/m-cryst [Macrobid] 100 mg capsule 100 mg PO DAILY Qty: 30 RF: 11 aspirin 81 mg Tablet,Delayed Release (Dr/Ec) 81 mg PO HS RF: 0 ascorbic acid (vitamin C) [Vitamin C] 500 mg Tablet 500 mg PO HS RF: 0 Premarin 0.625 mg/gram Cream 0.3125 mg VAGINAL 3XWK RF: 0 Myrbetriq 25 mg Tablet Extended Release 24 Hr 25 mg PO QPM RF: 0 Referrals Referrals: Johnny Luis [Primary Care Provider] - Discharge Problem: Urinary tract infection Qualifiers: Urinary tract infection type: acute cystitis Hematuria presence: without hematuria Qualified Code(s): N30.00 - Acute cystitis without hematuria
--- NOTE | 2019-05-23 23:19 | Emergency Department Note ---
ED Visit Note Patient was seen by our PA/HEALTH TECHNICIAN HEARING. I was involved in the patient's care and did evaluate the patient myself. I was involved in the care throughout the ER stay. The patient presents with lower abdominal pain and some urinary symptoms. She has a history of UTIs. Her urine does appear consistent with infection. Hospitalization was felt warranted. Pyelonephritis was a concern. .
--- NOTE | 2019-05-23 23:32 | History & Physical Report ---
Date of Service May 23, 2019 Assessment & Plan (1) Recurrent UTI: Multiple antibiotic sensitivities and/or allergies. Placed on aztreonam 1 g IV every 8 hours. Follow urine culture and sensitivity Present on Admission?: Yes (2) Hydronephrosis due to ureteral stricture: Consulting urology Dr. Kaufman for further assessment Present on Admission?: Yes (3) Urge and stress incontinence: Continue Myrbetriq Present on Admission?: Yes (4) Hypertension: Continue atenolol 50 mg p.o. in the morning with hold parameters. Hold aspirin for any potential procedure. Present on Admission?: Yes (5) Hyperlipemia: Continue simvastatin 20 mg in evening Present on Admission?: Yes History of Present Illness Chief Complaint: The patient presents to the emergency department with complaint of increased urinary frequency and lower abdominal pain, with the development of fever over the past 24 hours in spite of chronic Macrobid prophylaxis by Dr. Kaufman. Primary Care Provider: Johnny Luis The patient is a 68-year-old female with past medical history of recurrent urinary tract infection, multiple antibiotic sensitivities and/or allergies, abnormal uterine bleeding, hyperlipidemia, hypertension, urge and stress incontinence and dysuria, who presents as above. Allergies Allergy/AdvReac Type Severity Reaction Status Date / Time Bactrim Allergy Intermediate EYE Verified 12/20/17 05:42 IRRITATION ciprofloxacin Allergy Intermediate LE EDEMA Verified 05/23/19 23:03 fluconazole [From Diflucan] Allergy Intermediate EYE Verified 05/23/19 23:03 IRRITATION levofloxacin Allergy Intermediate BLURRY Verified 05/23/19 23:03 VISION Penicillins Allergy Intermediate HIVES Verified 05/23/19 23:03 sulfamethoxazole Allergy Intermediate EYE Verified 05/23/19 23:03 IRRITATION trimethoprim Allergy Intermediate EYE Verified 05/23/19 23:03 IRRITATION cephalexin Allergy Unknown UNSURE OF Verified 05/23/19 23:03 REACTION Cipro Allergy Unknown "EXCESS Verified 12/20/17 05:42 FLUID NOTED" gentamicin AdvReac Intermediate Blurry Verified 05/23/19 23:03 vision codeine AdvReac Mild DYSPEPSIA Verified 03/19/19 15:28 Home Medications Home Medications Medication Instructions Recorded Confirmed Type atenolol 50 mg tablet 50 mg PO QAM tab 12/12/18 05/23/19 History omeprazole 20 mg capsule,delayed 20 mg PO QAM #90 cap 12/12/18 05/23/19 History release simvastatin 20 mg tablet 20 mg PO QPM 01/17/19 05/23/19 History Myrbetriq 25 mg PO QPM 01/18/19 05/23/19 History Premarin 0.3125 mg VAGINAL 3XWK 01/18/19 05/23/19 History ascorbic acid (vitamin C) [Vitamin 500 mg PO HS 01/18/19 05/23/19 History C] aspirin 81 mg PO HS 01/18/19 05/23/19 History phenazopyridine 200 mg tablet 200 mg PO TID PRN #20 tab 01/23/19 05/23/19 Rx nitrofurantoin 100 mg PO DAILY #30 cap 03/19/19 05/23/19 Rx monohydrate/macrocrystals 100 mg capsule Past Med/Surg History Medical History Frequent UTI GERD (gastroesophageal reflux disease) controlled Hyperlipidemia Hypertension Osteoarthritis Urinary leakage Yeast infection improving on diflucan (to be completed prior to surgery)- patient states she will contact surgeon if not resolved prior to surgery Surgical History History of back surgery History of bilateral tubal ligation History of biopsy of bladder BENIGN History of cholecystectomy History of colonoscopy History of hysteroscopy D&C, hysteroscopy: 11/04/17: LMA#4 at [facility] History of tooth extraction Uterine polyp REMOVED Family History Mother Diabetes Sister Diabetes Other Heart disease Hyperlipidemia Social History Preferred Language: Kazakh Communication Ability: Effective Toll Test Worker Required: No Beliefs That Will Affect Care: None Current Living Situation: Alone Other Information That Helps Us Care for You: No Feels Safe at Home: Yes Safety Concerns: Feels Safe At This Time Smoking Status: Never smoker Second Hand Exposure: Yes (IN THE PAST) ; Hx Alcohol Use: No Hx Substance Use: No Review of Systems Review of Systems: The patient denies chest pain, palpitations, shortness of breath, dyspnea on exertion, cough, lower extremity swelling, sore throat, fevers, chills, sweats, fatigue, vomiting, diarrhea , constipatio n, blood in stool,lightheadedness, dizziness, headache, memory loss, loss of consciousness, rash, abnormal bruising or bleeding, imbalance, focal or generalized weakness, numbness or tingling in arms or legs, generalized arthralgias or myalgias, back or neck pain, or night sweats. The review of systems is otherwise negative other than for that already noted above, and at least 10 systems have been reviewed. Physical Exam Physical Exam: The patient is awake, alert and oriented 3, well developed and well nourished, normocephalic and atraumatic, lying in bed and in no acute distress. HEENT--PERRL, EOMI, mucous membranes and oropharynx dry, face is mildly flushed. Neck--supple. No JVD. No bruits. Thyroid normal, trachea midline, no adenopathy. Heart--normal S1 and S2. No murmurs, rubs or gallops. Lungs--clear bilaterally, no respiratory distress, no accessory muscle use. Abdomen--normal bowel sounds and soft. Nontender. Nondistended. Extremities--no cyanosis or clubbing. No edema. There are good distal pulses b/l. Dermatologic--facial flushing as noted above. Neurologic--cranial nerves II through XII grossly intact. Rheumatologic--normal range of motion. Psychiatric--normal affect. Results & Data Vital Signs (Past 12 Hours) Vital Signs Temp Pulse Pulse Resp BP BP Pulse Ox 05/23/19 23:14 78 18 176/88 H 96 05/23/19 22:30 150/67 H 05/23/19 22:20 78 16 97 05/23/19 22:15 77 25 H 147/59 H 95 05/23/19 22:10 77 24 96 05/23/19 22:09 78 24 96 05/23/19 22:00 79 24 149/69 H 98 05/23/19 21:50 78 20 150/72 H 97 05/23/19 21:12 99.0 F 84 18 190/84 H 92 Laboratory Results Laboratory Results WBC 11.28 K/uL (4.8-10.8) H 05/23/19 21:50 RBC 4.67 M/uL (4.2-5.4) 05/23/19 21:50 Hgb 12.9 g/dL (12.0-16.0) 05/23/19 21:50 Hct 39.6 % (37-47) 05/23/19 21:50 MCV 84.8 fL (80-100) 05/23/19 21:50 MCH 27.6 pg (25-34) 05/23/19 21:50 MCHC 32.6 g/dL (32-36) 05/23/19 21:50 RDW Std Deviation 44.1 fL (36.4-46.3) 05/23/19 21:50 RDW Coeff of Marisol 14.2 % (11.5-14.5) 05/23/19 21:50 Plt Count 111 K/uL (130-400) L 05/23/19 21:50 MPV 9.5 fL (7.4-10.4) 05/23/19 21:50 Immature Gran % (Auto) 0.4 % 05/23/19 21:50 Neut % (Auto) 81.9 % 05/23/19 21:50 Lymph % (Auto) 9.0 % 05/23/19 21:50 [place] % (Auto) 5.9 % 05/23/19 21:50 Eos % (Auto) 2.6 % 05/23/19 21:50 Baso % (Auto) 0.2 % 05/23/19 21:50 Immature Gran # (Auto) 0.04 K/uL (0.00-0.02) H 05/23/19 21:50 Neut # (Auto) 9.24 K/uL (1.4-6.5) H 05/23/19 21:50 Lymph # (Auto) 1.02 K/uL (1.2-3.4) L 05/23/19 21:50 [place] # (Auto) 0.67 K/uL (0.11-0.59) H 05/23/19 21:50 Eos # (Auto) 0.29 K/uL (0-0.5) 05/23/19 21:50 Baso # (Auto) 0.02 K/uL (0-0.2) 05/23/19 21:50 PT 9.9 Seconds (9.0-12.0) 05/23/19 21:50 INR 1.0 (0.9-1.1) 05/23/19 21:50 APTT 24.1 Seconds (21.0-31.0) 05/23/19 21:50 PTT Ratio 0.9 05/23/19 21:50 Sodium 142 mmol/L (136-145) 05/23/19 21:50 Potassium 4.1 mmol/L (3.5-5.1) 05/23/19 21:50 Chloride 108 mmol/L (98-107) H 05/23/19 21:50 Carbon Dioxide 30 mmol/L (21-32) 05/23/19 21:50 Anion Gap 4.0 (3-11) 05/23/19 21:50 BUN 11 mg/dl (7-18) 05/23/19 21:50 Creatinine 0.76 mg/dl (0.6-1.2) 05/23/19 21:50 Est Cr Clr Drug Dosing 75.6 ml/min 05/23/19 21:50 Est GFR ( Amer) 93.4 05/23/19 21:50 Est GFR (Non-Af Amer) 80.6 05/23/19 21:50 BUN/Creatinine Ratio 14.7 (10-20) 05/23/19 21:50 Glucose 106 mg/dl (70-99) H 05/23/19 21:50 POC Lactic Acid Dany 1.02 mmol/L (0.90-1.70) 05/23/19 21:53 Calcium 9.0 mg/dl (8.5-10.1) 05/23/19 21:50 Magnesium 1.8 mg/dl (1.8-2.4) 05/23/19 21:50 Total Bilirubin 0.4 mg/dl (0.2-1) 05/23/19 21:50 AST 20 U/L (15-37) 05/23/19 21:50 ALT 20 U/L (12-78) 05/23/19 21:50 Alkaline Phosphatase 86 U/L (45-117) 05/23/19 21:50 Troponin I < 0.015 ng/ml (0-0.045) 05/23/19 21:50 Total Protein 6.8 gm/dl (6.4-8.2) 05/23/19 21:50 Albumin 3.3 gm/dl (3.4-5.0) L 05/23/19 21:50 Globulin 3.5 gm/dl (2.5-4.0) 05/23/19 21:50 Albumin/Globulin Ratio 0.9 (0.9-2) 05/23/19 21:50 Urine Color Yellow 05/23/19 21:30 Urine Appearance Turbid (Clear) A 05/23/19 21:30 Urine pH 6.0 (4.5-7.5) 05/23/19 21:30 Ur Specific [place] 1.006 (1.000-1.030) 05/23/19 21:30 Urine Protein Trace (Negative) H 05/23/19 21:30 Urine Glucose (UA) Negative (Negative) 05/23/19 21:30 Urine Ketones Negative (Negative) 05/23/19 21:30 Urine Blood 1+ (Negative) H 05/23/19 21:30 Urine Nitrite Negative (Negative) 05/23/19 21:30 Urine Bilirubin Negative (Negative) 05/23/19 21:30 Urine Urobilinogen Negative (Negative) 05/23/19 21:30 Ur Leukocyte Esterase 3+ (Negative) H 05/23/19 21:30 Urine WBC (Auto) >30 /hpf (0-5) H 05/23/19 21:30 Urine RBC (Auto) 0-4 /hpf (0-4) 05/23/19 21:30 U Hyaline Cast (Auto) 1-5 /lpf (0-5) 05/23/19 21:30 U Epithel Cells (Auto) 5-10 /lpf (0-5) H 05/23/19 21:30 Urine Bacteria (Auto) Negative (Negative) 05/23/19 21:30 Urine Yeast Budding (None Prsent) A 05/23/19 21:30 Diagnostic Findings [facility] [place] [phone] XRay Report Patient: ERICKSON METCALF DAdmit Date: 05/23/19 MR#: [id number]: [facility] [facility] Acct ID:[id number]: [address] Date: [address] [place] [address] Zip: [place] [address] Age: 68Location: ED Sex: F Room/Bed: Att Phy:Diagnosis: URINARY SYMPTOMS, FEVER,UPSET STOMACH Dipti Phy: Johnny Luis D.O.Service Date: 05/23/19 [facility] Phy:Interpreting Phy: aWlly Farris MD Admit Phy: Ordering Phy: Mai Blancas PA-C cc: ~ XR chest 1V portable HISTORY: SEPSIS COMPARISON: Chest 01/02/2018. FINDINGS: No pneumothorax. No pleural effusions. The heart remains enlarged. No evidence for pulmonary edema. No focal lung consolidations to suggest pneumonia. Increased markings at the lung bases. This favors atelectasis/dependent change. IMPRESSION: 1. Stable mild cardiomegaly. 2. Bibasilar densities favor atelectasis. ACT 112: Negative or not required by law. Electronically signed by: Wally Farris M.D. 05/23/2019 10:28 PM Dictated: 05/23/192226 Transcribed: 05/23/192226 [place], [place] [phone] CT Scan Report Patient: ERICKSON METCALF Date: 05/23/19 MR#: [id number]: [id number] [facility] Acct ID:[id number]: [address] Date: 1950[facility] Zip: [place] [address] Age: 68Location: ED Sex: F Room/Bed: Att Phy:Diagnosis: URINARY SYMPTOMS, FEVER,UPSET STOMACH Dipti Phy: Johnny Luis D.O.Service Date: 05/23/19 [facility] Phy:Interpreting Phy: Wally Farris MD Admit Phy: Ordering Phy: Mai Blancas .CRISTOBAL cc: ~ ABDOMEN AND PELVIS CT WITH IV CONTRAST CT DOSE: 1302.95 mGy.cm HISTORY: Lower abdominal pain. TECHNIQUE: Multiaxial CT images of the abdomen and pelvis were performed following the use of intravenous contrast. A dose lowering technique was utilized adhering to the principles of ALARA. COMPARISON STUDY: Abdomen and pelvis CT 10/11/2013. FINDINGS: Mild peripheral densities at the lung bases which may represent chronic interstitial change. No pneumoperitoneum. No pneumatosis. No suspicious lytic or blastic osseous lesions. A single mildly enlarged right infrahilar lymph node measuring 1 cm. Moderate size fat-containing umbilical hernia. The hernia sac measures 6.8 cm. The hernia neck measures 2.5 cm. Thickening within the lower anterior bladder wall as seen on images 370 through 387.. There is a large anterior bladder diverticulum. The uterus and bilateral adnexa are unremarkable. The kidneys enhance normally. There is mild left hydro ureteronephrosis with focal distal tapering within the left ureter at the level of the ureterovesical junction. This is best seen on image 360. No renal or ureteral stones. No right-sided hydronephrosis. Question of a 2 mm focus of enhancement within the left renal pelvis image 157. No retroperitoneal lymphadenopathy. Tiny hiatus hernia. A stable 1.5 cm hypodense lesion within the left hepatic lobe. This is likely benign in the long-term stability. Cholecystectomy. Spleen, adrenal glands, and pancreas are unremarkable. No bowel wall thickening or obstruction. Normal appendix. IMPRESSION: 1. Persistent thickening of the lower anterior bladder wall which could represent a chronic cystitis. Recommend correlation with urinalysis. 2. Mild left hydroureteronephrosis to the level of the ureterovesical junction where there is focal tapering of the distal left ureter. This could represent a focal stricture or occult urothelial lesion. No renal or ureteral stones. 3. There is also a questionable 2 mm nodular focus of enhancement within the left renal pelvis as described above. This raises the possibility of a urothelial lesion. Nonemergent urology consultation recommended for further evaluation. 4. No bowel wall thickening or obstruction. 5. A single mildly enlarged right infrahilar lymph node measuring 1 cm. This is of uncertain clinical significance. 6. Additional findings as described above. ACT 112: Negative or not required by law. Electronically signed by: Wally Farris M.D. 05/23/2019 10:50 PM Dictated: 05/23/192239 Transcribed: 05/23/192239 Code Status & VTE Plan Code Status Full code VTE Prophylaxis Plan VTE Prophylaxis will be ordered: Yes PG Care Time/CCT Total # of Minutes Spent Total Time Spent with Patient: Total time spent is greater than 50% in coordination of care (as documented) at patient's floor/unit and/or counseling patient:
[2019-05-24] MEDS ORDERED: ONDANSETRON INJ 2 MG/ML 2 ML VIAL IV PRN (00:24)
[2019-05-24] MEDS: NSS + 20MEQ KCL 20 MEQ/1,000 ML BAG IV SCH ×2 (01:49→15:24)
[2019-05-24] MEDS: AZTREONAM 1,000 MG in DEXTROSE 5% 100 ML IV SCH ×2 (04:44→12:14)
[2019-05-24] MEDS ORDERED: ATENOLOL 50 MG TABLET PO SCH (09:00)
[2019-05-24] MEDS ORDERED: PANTOprazole 40 MG TAB PO SCH (09:00)
[2019-05-24] MEDS ORDERED: FLUCONAZOLE 100 MG TAB PO SCH ×4 (11:15→21:00)
--- NOTE | 2019-05-24 14:09 | Hospitalist Progress Note ---
Date of Service May 24, 2019 Assessment & Plan (1) Recurrent UTI: #Recurrent UTI Patient with a history of recurrent UTIs, on daily Macrobid prophylaxis. Through conversation with the patient she reports her UTI symptoms resolved largely after a 7-day course of fluconazole. UA in the emergency department last night was positive for Mary, previous urine cultures have been positive for Mary as well. Patient also reports a history of lesions in the bladder, these sound like a reasonable place for the source of her infection. -Urine culture pending -Aztreonam 1 g IV every 8 hours pending speciation and sensitivities -Fluconazole 100 mg twice daily for 14 days -Request sensitivities to be performed on Mary if present in urine culture #Hydronephrosis due to ureteral strictures Urology is consulted appreciate input, patient has been n.p.o. overnight in case procedure to be performed. #Urge and stress incontinence -Continue Myrbetriq #Hypertension -Continue atenolol 50 mg p.o. -Holding aspirin in the event Dr. Kaufman would like to perform her procedure #Hyperlipidemia -Continue simvastatin 20 mg every afternoon FENa: Currently n.p.o. will advance to heart healthy diet Code Status: Full code DVT PPX: Contraindicated for potential procedure PT/OT: Not indicated Dispo: Home pending clinical improvement Chan Henderson MD PGY 2, FCM This chart was completed utilizing [employer] voice recognition software. Grammatical errors, random word insertions, pronoun errors, and in complete sentences are an occasional consequence of the system. Any questions or concerns about the content, text, or information contained within the body of this dictation should be addressed directly to the physician for clarification. (2) Hydronephrosis due to ureteral stricture: (3) GERD (gastroesophageal reflux disease): (4) Abdominal pain: Subjective Patient sitting upright in bed this morning in no acute distress. Patient reports no acute events overnight, sleeping well. Patient has been voiding, has been n.p.o. overnight in case Dr. Kaufman wanted to perform her procedure, no bowel movement requesting MiraLAX, slept well. I reviewed the patient's urine laboratory results over the past year or so noticed that frequently she was positive for Mary. 3 discussing this with the patient she relayed that Dr. Kaufman had previously given her a course of fluconazole for 7 days which should resolve her urinary symptoms until her current presentation today. No acute concerns are present, all questions answered. Physical Exam Physical Exam: General: No acute distress HEENT: Normocephalic atraumatic Neck: Normal to visual inspection, did not appreciate significant JVD, trachea m idline Cardiac: Regular rate and rhythm, I did not appreciate any significant murmurs, rubs, gallops, normal S1, normal S2, negative pedal edema, negative calf tenderness Respiratory: Clear to auscultation bilaterally without significant wheezes, rales, rhonchi, symmetrical chest expansion bilaterally GI: Soft, nontender, nondistended, negative CVA tenderness MSK: Moves all extremities Neuro: Alert and oriented x4 Psych: Calm, cooperative, participated in interview Results & Data Vital Signs (Past 12 Hours) Vital Signs Temp Pulse Resp BP Pulse Ox 05/24/19 07:12 36.6 C 64 16 117/70 96 Laboratory Results 05/23/19 05/23/19 05/23/19 Range/Units 21:53 21:50 21:50 WBC (4.8-10.8) K/uL RBC (4.2-5.4) M/uL Hgb (12.0-16.0) g/dL Hct (37-47) % MCV (80-100) fL MCH (25-34) pg MCHC (32-36) g/dL RDW Std Deviation (36.4-46.3) fL RDW Coeff of Marisol (11.5-14.5) % Plt Count (130-400) K/uL MPV (7.4-10.4) fL Immature Gran % (Auto) % Neut % (Auto) % Lymph % (Auto) % [place] % (Auto) % Eos % (Auto) % Baso % (Auto) % Immature Gran # (Auto) (0.00-0.02) K/uL Neut # (Auto) (1.4-6.5) K/uL Lymph # (Auto) (1.2-3.4) K/uL [place] # (Auto) (0.11-0.59) K/uL Eos # (Auto) (0-0.5) K/uL Baso # (Auto) (0-0.2) K/uL PT (9.0-12.0) Seconds INR (0.9-1.1) APTT (21.0-31.0) Seconds PTT Ratio Sodium 142 (136-145) mmol/L Potassium 4.1 (3.5-5.1) mmol/L Chloride 108 H (98-107) mmol/L Carbon Dioxide 30 (21-32) mmol/L Anion Gap 4.0 (3-11) BUN 11 (7-18) mg/dl Creatinine 0.76 (0.6-1.2) mg/dl Est Cr Clr Drug Dosing 75.6 ml/min Est GFR ( Amer) 93.4 Est GFR (Non-Af Amer) 80.6 BUN/Creatinine Ratio 14.7 (10-20) Glucose 106 H (70-99) mg/dl POC Lactic Acid Dany 1.02 (0.90-1.70) mmol/L Calcium 9.0 (8.5-10.1) mg/dl Magnesium 1.8 (1.8-2.4) mg/dl Total Bilirubin 0.4 (0.2-1) mg/dl AST 20 (15-37) U/L ALT 20 (12-78) U/L Alkaline Phosphatase 86 (45-117) U/L Troponin I < 0.015 (0-0.045) ng/ml Total Protein 6.8 (6.4-8.2) gm/dl Albumin 3.3 L (3.4-5.0) gm/dl Globulin 3.5 (2.5-4.0) gm/dl Albumin/Globulin Ratio 0.9 (0.9-2) Urine Color Urine Appearance (Clear) Urine pH (4.5-7.5) Ur Specific [place] (1.000-1.030) Urine Protein (Negative) Urine Glucose (UA) (Negative) Urine Ketones (Negative) Urine Blood (Negative) Urine Nitrite (Negative) Urine Bilirubin (Negative) Urine Urobilinogen (Negative) Ur Leukocyte Esterase (Negative) Urine WBC (Auto) (0-5) /hpf Urine RBC (Auto) (0-4) /hpf U Hyaline Cast (Auto) (0-5) /lpf U Epithel Cells (Auto) (0-5) /lpf Urine Bacteria (Auto) (Negative) Urine Yeast (None Prsent) Hepatitis C Ab Screen Neg (Neg) 05/23/19 05/23/19 05/23/19 Range/Units 21:50 21:50 21:30 WBC 11.28 H (4.8-10.8) K/uL RBC 4.67 (4.2-5.4) M/uL Hgb 12.9 (12.0-16.0) g/dL Hct 39.6 (37-47) % MCV 84.8 (80-100) fL MCH 27.6 (25-34) pg MCHC 32.6 (32-36) g/dL RDW Std Deviation 44.1 (36.4-46.3) fL RDW Coeff of Marisol 14.2 (11.5-14.5) % Plt Count 111 L (130-400) K/uL MPV 9.5 (7.4-10.4) fL Immature Gran % (Auto) 0.4 % Neut % (Auto) 81.9 % Lymph % (Auto) 9.0 % [place] % (Auto) 5.9 % Eos % (Auto) 2.6 % Baso % (Auto) 0.2 % Immature Gran # (Auto) 0.04 H (0.00-0.02) K/uL Neut # (Auto) 9.24 H (1.4-6.5) K/uL Lymph # (Auto) 1.02 L (1.2-3.4) K/uL [place] # (Auto) 0.67 H (0.11-0.59) K/uL Eos # (Auto) 0.29 (0-0.5) K/uL Baso # (Auto) 0.02 (0-0.2) K/uL PT 9.9 (9.0-12.0) Seconds INR 1.0 (0.9-1.1) APTT 24.1 (21.0-31.0) Seconds PTT Ratio 0.9 Sodium (136-145) mmol/L Potassium (3.5-5.1) mmol/L Chloride (98-107) mmol/L Carbon Dioxide (21-32) mmol/L Anion Gap (3-11) BUN (7-18) mg/dl Creatinine (0.6-1.2) mg/dl Est Cr Clr Drug Dosing ml/min Est GFR ( Amer) Est GFR (Non-Af Amer) BUN/Creatinine Ratio (10-20) Glucose (70-99) mg/dl POC Lactic Acid Dany (0.90-1.70) mmol/L Calcium (8.5-10.1) mg/dl Magnesium (1.8-2.4) mg/dl Total Bilirubin (0.2-1) mg/dl AST (15-37) U/L ALT (12-78) U/L Alkaline Phosphatase (45-117) U/L Troponin I (0-0.045) ng/ml Total Protein (6.4-8.2) gm/dl Albumin (3.4-5.0) gm/dl Globulin (2.5-4.0) gm/dl Albumin/Globulin Ratio (0.9-2) Urine Color Yellow Urine Appearance Turbid A (Clear) Urine pH 6.0 (4.5-7.5) Ur Specific [place] 1.006 (1.000-1.030) Urine Protein Trace H (Negative) Urine Glucose (UA) Negative (Negative) Urine Ketones Negative (Negative) Urine Blood 1+ H (Negative) Urine Nitrite Negative (Negative) Urine Bilirubin Negative (Negative) Urine Urobilinogen Negative (Negative) Ur Leukocyte Esterase 3+ H (Negative) Urine WBC (Auto) >30 H (0-5) /hpf Urine RBC (Auto) 0-4 (0-4) /hpf U Hyaline Cast (Auto) 1-5 (0-5) /lpf U Epithel Cells (Auto) 5-10 H (0-5) /lpf Urine Bacteria (Auto) Negative (Negative) Urine Yeast Budding A (None Prsent) Hepatitis C Ab Screen (Neg) Medications Administered Current Inpatient Medications Ascorbic Acid (Vitamin C) 500 mg PO HS [facility] Stop: 06/23/19 20:59 Atenolol (Tenormin) 50 mg PO QAM [facility] Stop: 06/23/19 08:59 Last Admin: 05/24/19 08:58 Dose: 50 mg Documented by: Estrogens Conjugated (Premarin Vag) 0.25 appln PV MoWeFr@0900 [facility] Stop: 06/24/19 08:59 Fluconazole (Diflucan) 100 mg PO BID [facility] Stop: 06/03/19 11:59 Last Admin: 05/24/19 11:54 Dose: 100 mg Documented by: Aztreonam 1,000 mg/ Dextrose 110 mls @ 100 mls/hr IV Q8H [facility]; Protocol Stop: 06/03/19 03:59 Last Infusion: 05/24/19 13:24 Dose: Infused Documented by: Potassium Chloride/Sodium Chloride (Normal Saline W/20 Meq Kcl) 20 meq in 1,000 mls @ 80 mls/hr IV .[id number] [facility] Stop: 06/23/19 00:23 Last Infusion: 05/24/19 05:59 Dose: 80 mls/hr Documented by: Ioversol (Optiray 320 100ml) 94 ml IV ONCE PRN PRN Reason: Interaction Checking Stop: 05/27/19 22:34 Last Admin: 05/23/19 22:35 Dose: 94 ml Documented by: Mirabegron (Myrbetriq Er) 25 mg PO QPM [facility] Stop: 06/23/19 20:59 Ondansetron HCl (Zofran) 4 mg IV Q6H PRN PRN Reason: Nausea Stop: 06/23/19 00:23 Pantoprazole Sodium (Protonix) 40 mg PO QAM [facility] Stop: 06/23/19 08:59 Last Admin: 05/24/19 08:58 Dose: 40 mg Documented by: Polyethylene Glycol (Miralax Powder Packet) 17 gm PO BID [facility] Stop: 06/23/19 20:59 Simvastatin (Zocor) 20 mg PO QPM [facility] Stop: 06/23/19 20:59 Resident Activity Tracking Resident Involvement: Resident Care Provided Care Provided: Adult Hospital Medicine
--- NOTE | 2019-05-24 15:26 | Discharge Summary ---
Date of Service May 24, 2019 Admission HPI Per Admitting Provider The patient is a 68-year-old female with past medical history of recurrent urinary tract infection, multiple antibiotic sensitivities and/or allergies, abnormal uterine bleeding, hyperlipidemia, hypertension, urge and stress incontinence and dysuria, who presents as above. Admission Exam Per Admitting Provider The patient is awake, alert and oriented 3, well developed and well nourished, normocephalic and atraumatic, lying in bed and in no acute distress. HEENT--PERRL, EOMI, mucous membranes and oropharynx dry, face is mildly flushed. Neck--supple. No JVD. No bruits. Thyroid normal, trachea midline, no adenopathy. Heart--normal S1 and S2. No murmurs, rubs or gallops. Lungs--clear bilaterally, no respiratory distress, no accessory muscle use. Abdomen--normal bowel sounds and soft. Nontender. Nondistended. Extremities--no cyanosis or clubbing. No edema. There are good distal pulses b/l. Dermatologic--facial flushing as noted above. Neurologic--cranial nerves II through XII grossly intact. Rheumatologic--normal range of motion. Psychiatric--normal affect. Principal Diagnosis Mary urinary tract infection Discharge Exam General: No acute distress HEENT: Normocephalic atraumatic Neck: Normal to visual inspection, did not appreciate significant JVD, trachea midline Cardiac: Regular rate and rhythm, I did not appreciate any significant murmurs, rubs, gallops, normal S1, normal S2, negative pedal edema, negative calf tend erness Respiratory: Clear to auscultation bilaterally without significant wheezes, rales, rhonchi, symmetrical chest expansion bilaterally GI: Soft, nontender, nondistended, negative CVA tenderness MSK: Moves all extremities Neuro: Alert and oriented x4 Psych: Calm, cooperative, participated in interview Discharge Data Allergies Allergy/AdvReac Type Severity Reaction Status Date / Time Bactrim Allergy Intermediate EYE Verified 12/20/17 05:42 IRRITATION ciprofloxacin Allergy Intermediate LE EDEMA Verified 05/23/19 23:03 fluconazole [From Diflucan] Allergy Intermediate EYE Verified 05/23/19 23:03 IRRITATION levofloxacin Allergy Intermediate BLURRY Verified 05/23/19 23:03 VISION Penicillins Allergy Intermediate HIVES Verified 01/08/20 23:03 sulfamethoxazole Allergy Intermediate EYE Verified 05/23/19 23:03 IRRITATION trimethoprim Allergy Intermediate EYE Verified 05/23/19 23:03 IRRITATION cephalexin Allergy Unknown UNSURE OF Verified 05/23/19 23:03 REACTION Cipro Allergy Unknown "EXCESS Verified 12/20/17 05:42 FLUID NOTED" gentamicin AdvReac Intermediate Blurry Verified 05/23/19 23:03 vision codeine AdvReac Mild DYSPEPSIA Verified 03/19/19 15:28 Consultations 05/23/19 23:18 ED Decision to Admit Stat 05/24/19 00:24 Consult Case Management - Discharge Planning Routine Consult Urology Routine Ordered Studies 05/23/19 22:05 CT abd pelvis IV con only Stat Hospital Course (1) Recurrent UTI: #Recurrent UTI Patient with a history of recurrent UTIs, on daily Macrobid prophylaxis. Through conversation with the patient she reports her UTI symptoms resolved largely after a 7-day course of fluconazole. UA in the emergency department last night was positive for Mary, previous urine cultures have been positive for Mary as well. Patient also reports a history of lesions in the bladder, these sound like a reasonable place for the source of her infection. -Urine culture pending -DC'd aztreonam 1 g continue home Macrobid -Fluconazole 100 mg twice daily for 14 days, 13 more days on discharge -Request sensitivities to be performed on Mary if present in urine culture #Hydronephrosis due to ureteral strictures Urology was curb sided, recommended follow-up as an outpatient. #Urge and stress incontinence -Continue Myrbetriq #Hypertension -Continue atenolol 50 mg p.o. -Resume aspirin #Hyperlipidemia -Continued simvastatin 20 mg every afternoon FENa: Currently n.p.o. will advance to heart healthy diet Code Status: Full code DVT PPX: Contraindicated for potential procedure PT/OT: Not indicated Dispo: Home Chan Henderson MD PGY 2, FCM This chart was completed utilizing [employer] voice recognition software. Grammatical errors, random word insertions, pronoun errors, and in complete sentences are an occasional consequence of the system. Any questions or concerns about the content, text, or information contained within the body of this dictation should be addressed directly to the physician for clarification. (2) Hydronephrosis due to ureteral stricture: (3) GERD (gastroesophageal reflux disease): (4) Abdominal pain: Total Time Total Time Spent Total Time Spent (In Minutes): <30 Discharge Plan Discharge Items Patient Disposition: Home - Self-Care Reason For Visit: UTI, HYDRONEPHROSIS Discharge Diagnosis: Mary UTI Condition on Discharge: Fair Activity: Resume your previous activity Non-emergency contact: Primary Care Provider Call non-emergency contact if: your symptoms worsen, you have a fever and your temperature is above 101 Follow-up/Referrals: Johnny Luis [Primary Care Provider] - Diet: Heart Healthy Addtl Attending Provider Instructions: Care instructions: You were admitted to [facility] for treatment of Mary UTI. Your urine was positive for Mary on admission, after conversation with you and your previous improvement with fluconazole therapy we believe this is the source of your current presentation. Should your urine culture show anything different we will contact you to update you on the results. -Continue fluconazole 100 mg twice daily for a total of 14 days. You received your first dose this morning in the hospital, we will send you home with 3 doses 1 to be taken this evening and 2 for tomorrow. -12 additional doses have been sent to your pharmacy, you are to complete these over the next 12 days. -This medication has been sent to the right aid on [address] in [place]. A discharge summary will be sent to your primary care physician to ensure continuity of care. Please bring this discharge summary with you to your next office appointment so that your provider can review it at that time. Follow-up appointments: - Keep all your follow-up appointments as already scheduled. If you cannot make an appointment, notify your provider. - Please call to request a follow-up appointment with your primary care physician within one week of discharge. Please let us know if you are unable to obtain an appointment -Please contact Dr. Kaufman's office on discharge to arrange an outpatient follow-up appointment Medications: - Your medication list has been reviewed and reconciled upon discharge to ensure accuracy and continuity of care. - You are provided with a list of all your current medications at this time. Please review this list closely and make note of any changes. - Please take all of your medications exactly as prescribed. - Tell your primary care provider if you cannot afford your medications. - Call your primary care provider if you are having any side effects or any other problems. - Call your primary care provider before taking any over the counter medications or supplements, including herbals and vitamins, because some of these may interact with your current medications and/or make your symptoms worse. Symptoms: Please call your primary care provider for symptoms including, but not limited to: fevers (temperatures greater than 100.4), chills, intractable nausea or vomiting, diarrhea, rash, shortness of breath, bleeding, pain, or if you experience any worsening of the symptoms that brought you to the hospital. For EMERGENCY and VERY SERIOUS health-related issues, such as chest pain, shortness of breath, or sudden onset of the symptoms that brought you to the hospital, you may need to call 911 or go directly to the Emergency Room It has been our privilege to take care of you during your hospital stay. And Above All Else Feel Better! Best Wishes, Chan Henderson MD PGY2 Resident, Family & Community Medicine [facility] Residency at [facility] - [address], [address] MC: [place] [address] Pending Studies at Discharge: Yes (Urine culture and sensitivities.) Stand-Alone Forms: [facility], Work/School Release (Inpt) Medications and DC Order Prescriptions: New fluconazole 100 mg Tablet 100 mg PO BID 12 Days Qty: 24 RF: 0 Continued phenazopyridine [Pyridium] 200 mg tablet 200 mg PO TID PRN (Reason: pain) Qty: 20 RF: 0 atenolol 50 mg tablet 50 mg PO QAM RF: 0 omeprazole 20 mg capsule,delayed release(DR/EC) 20 mg PO QAM Qty: 90 RF: 0 simvastatin 20 mg tablet 20 mg PO QPM RF: 0 nitrofurantoin monohyd/m-cryst [Macrobid] 100 mg capsule 100 mg PO DAILY Qty: 30 RF: 11 aspirin 81 mg Tablet,Delayed Release (Dr/Ec) 81 mg PO HS RF: 0 ascorbic acid (vitamin C) [Vitamin C] 500 mg Tablet 500 mg PO HS RF: 0 Premarin 0.625 mg/gram Cream 0.3125 mg VAGINAL 3XWK RF: 0 Myrbetriq 25 mg Tablet Extended Release 24 Hr 25 mg PO QPM RF: 0 Discharge Orders: Discharge Order (Routine); Ordered 05/24/19 Ordered By: Chan Henderson Admission Data Admit Date/Time: 05/23/19 23:30 Attending Provider: Alonso Mclaughlin Admit Provider: Nabor Suarez Primary Care Provider: Johnny Luis Other Providers: Nabor Suarez ; Jerel Rodriguez I. Other Interventions: Discharge Summary Assessment (RN) Last Done: 05/24/19 18:08 DC Date/Time DO NOT enter until pt leaves facility: 05/24/19 19:52 Supervising Physician Co-Signing Physician Notes I personally examined the patient and verified all camejo points of history and exam, discussed case, and agree with decision making with Dr Henderson. feeling ok - thinks that this does feel like when she had fungal infection - feels safe going home vitals noted nad heent nc at mmm breathing unlabored no pallor or icterus UTI - presumably fungal - diflucan for now pending culture. urology f/u as out pt. stable/safe for home. Resident Activity Tracking Resident Involvement: Resident Care Provided Care Provided: Adult Hospital Medicine
[2019-05-24] MEDS ORDERED: Nursing to Pharmacy Communication ONE (15:27)
[2019-05-24] MEDS ORDERED: POLYETHYLENE (MIRALAX) 17 GM PACK PO SCH (21:00)
[2019-05-24] MEDS ORDERED: ASPIRIN 81 MG ECTAB PO SCH (21:00)
[2019-05-24] MEDS ORDERED: SIMVASTATIN 20 MG TAB PO SCH (21:00)
[2019-05-24] MEDS ORDERED: MIRABEGRON ER 25 MG TAB PO SCH (21:00)
[2019-05-24] MEDS ORDERED: ASCORBIC ACID 500 MG TAB PO SCH (21:00)
--- NOTE | 2019-05-24 23:06 | Electrocardiogram Report ---
Test Reason : Blood Pressure : / mmHG Vent. Rate : 080 BPM Atrial Rate : 080 BPM P-R Int : 162 ms QRS Dur : 076 ms QT Int : 388 ms P-R-T Axes : 024 020 053 degrees QTc Int : 447 ms Normal sinus rhythm Normal ECG When compared with ECG of 25-JAN-2019 15:33, No significant change was found Confirmed by Unruly Qureshi ([id number]) on 05/24/2019 11:06:41 PM Referred By: REFERRED SELF Confirmed By:Unruly Qureshi
[2019-05-25] MEDS ORDERED: PREMARIN VAG CRM 14 APPLN/30 GM TUBE PV SCH (09:00)
== END 2019-05-24 19:52 | disposition home or self-care (01) | DRG 759 ==
LOC: ED 21:10 → 3W 23:30 → SUATTDRO 23:30 → 3W 05-24 00:16